=== PATIENT | female | born 1935 | race Caucasian/White ===

== ENCOUNTER 2016-11-22 12:34 | Outpatient (CLI) | payer MEDICARE, OTHER | END 2016-11-22 12:35 | disposition critical access hospital (66) | LOC: EMS 12:34 | PROVIDERS: ATTEND Surgery | DX: R07.9 Chest pain, unspecified (principal); R06.02 Shortness of breath; M54.5 Low back pain; K92.1 Melena | CPT/HCPCS: A0425; A0427 ==

== ENCOUNTER 2016-11-22 12:47 | Emergency (ER) | payer MEDICARE, OTHER ==
[2016-11-22 13:13] LABS: BASOPHILS # (AUTO) 0.1 10^3/uL (0.0-0.1); BASOPHILS % (AUTO) 0.8 %; EOSINOPHILS # (AUTO) 0.1 10^3/uL (0.0-0.7); EOSINOPHILS % (AUTO) 1.6 %; HCT - HEMATOCRIT 42.9 % (37.0-47.0); HGB - HEMOGLOBIN 14.7 g/dL (12.0-16.0); LYMPHOCYTES % (AUTO) 26.6 %; MEAN CORPUSCULAR HEMOGLOBIN 32.2 pg (27.0-31.0); MEAN CORPUSCULAR HGB CONC 34.3 g/dL (32.0-36.0); MEAN CORPUSCULAR VOLUME 94.1 fL (81.0-99.0); MEAN PLATELET VOLUME 8.2 fL (7.9-10.8); MONOCYTES # (AUTO) 0.5 10^3/uL (0.0-1.0); MONOCYTES % (AUTO) 6.8 %; NEUTROPHILS # (AUTO) 4.8 10^3/uL (1.5-6.6); NEUTROPHILS % (AUTO) 64.2 %; NUCLEATED RED BLOOD CELLS AUTO 0.1 /100WBC; RED BLOOD COUNT 4.56 10^6/uL (4.20-5.40); RED CELL DISTRIBUTION WIDTH 13.6 % (12.0-15.0); UNCORRECTED WHITE BLOOD COUNT 7.5 x10^3/uL; WHITE BLOOD COUNT 7.5 x10^3/uL (4.8-10.8)
[2016-11-22 13:29] LABS: ALBUMIN/GLOBULIN RATIO 1.3 (1.0-2.2); BILIRUBIN,TOTAL 1.5 mg/dL (0.2-1.0); CALCIUM 9.3 mg/dL (8.5-10.3); CREATININE 0.9 mg/dL (0.4-1.0); TOTAL PROTEIN 7.3 g/dL (6.7-8.2)
[2016-11-22 13:36] LABS: INR 1.1 (0.8-1.2); PT - PROTHROMBIN TIME 12.2 secs (9.9-12.6)
[2016-11-22] MEDS ORDERED: SODIUM CHLORIDE 0.9% 1,000 ML IV ONE (13:47)
[2016-11-22] MEDS ORDERED: THIAMINE 100 MG TABLET PO STA (13:48)
[2016-11-22] MEDS ORDERED: THIAMINE 100 MG TABLET PO ONE (13:58)
--- NOTE | 2016-11-22 14:06 | XRAY Preliminary Report ---
Exam: XR Chest 1 View IMPRESSION: Normal single view chest. [facility] SITE ID: [id number]
--- NOTE | 2016-11-22 14:13 | XRAY Report ---
EXAM: CHEST RADIOGRAPHY EXAM DATE: 11/22/2016 01:44 PM. CLINICAL HISTORY: Chest pain. COMPARISON: 08/17/2016. TECHNIQUE: 1 view. FINDINGS: Lungs/Pleura: No focal opacities evident. No pleural effusion. No pneumothorax. Mediastinum: Within exam limitations, cardiomediastinal contour is normal. Other: None. IMPRESSION: Normal single view chest. [facility] Referring Provider Line: [phone] SITE ID: [id number]
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
--- NOTE | 2016-11-22 14:38 | CT Preliminary Report ---
Exam: CT Head W/O IMPRESSION: Generalized age-related cortical atrophic changes without evidence of acute intracranial abnormality. [facility] SITE ID: [id number]
--- NOTE | 2016-11-22 14:46 | CT Report ---
EXAM: CT HEAD EXAM DATE: 11/22/2016 02:11 PM. CLINICAL HISTORY: Altered mental status (AMS). COMPARISON: 04/23/2007. Head MRI 04/28/2007. TECHNIQUE: Multiaxial CT images were obtained from the foramen magnum to the vertex. IV contrast: Non e. Reformats: Coronal. In accordance with CT protocol optimization, one or more of the following dose reduction techniques w ere utilized for this exam: automated exposure control, adjustment of mA and/or KV based on patient s ize, or use of iterative reconstructive technique. FINDINGS: Parenchyma: No intraparenchymal hemorrhage. No evidence of mass, midline shift, or CT findings of acu te infarction. Verde-white differentiation is distinct. Extraaxial Spaces: Normal for age. No subdural or epidural collections identified. Ventricles: The ventricles and cortical sulci are enlarged, consistent with age-related tissue loss. Sinuses: Imaged paranasal sinuses, orbits, and mastoids show no significant abnormality. Bones: No evidence of fracture or calvarial defect. Other: Diffuse chronic microangiopathic white matter changes are evident. IMPRESSION: Generalized age-related cortical atrophic changes without evidence of acute intracranial abnormality. [facility] Referring Provider Line: [phone] SITE ID: [id number]
--- NOTE | 2016-11-22 14:57 | CT Preliminary Report ---
Exam: CT Cervical Spine W/O IMPRESSION: 1. No evidence of cervical spine fracture or dislocation. 2. There is mild multilevel degenerative disease. [facility] SITE ID: [id number]
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
[2016-11-22] MEDS ORDERED: PANTOPRAZOLE 40 MG VIAL IVP STA (16:46)
[2016-11-22] MEDS ORDERED: POTASSIUM CHLORIDE 20 MEQ TABLET PO STA (16:46)
[2016-11-22] MEDS ORDERED: POTASSIUM CHLORIDE 20 MEQ TABLET PO ONE (17:25)
[2016-11-22] MEDS ORDERED: PANTOPRAZOLE 40 MG VIAL ONE (17:25)
[2016-11-22] MEDS ORDERED: SODIUM CHLORIDE FLUSH 0.9% 10 ML SYRINGE IVP ONE (17:26)
[2016-11-22] MEDS ORDERED: MAGNESIUM SULFATE 1 GM/2 ML VIAL IVP STA (17:38)
[2016-11-22] MEDS ORDERED: MAGNESIUM SULFATE 2 GRAM 50 ML IV STA (17:40)
[2016-11-22] MEDS ORDERED: MAGNESIUM SULFATE 2 GRAM 50 ML IV ONE (17:59)
[2016-11-22 20:44] VITALS: BP 158/81
== END 2016-11-22 19:05 | disposition home or self-care (01) ==
LOC: EDUNIT# → ED 12:47
DX: E83.42 Hypomagnesemia (principal); E87.6 Hypokalemia; I48.91 Unspecified atrial fibrillation; Z79.82 Long term (current) use of aspirin
CPT/HCPCS: 36415; 70450; 71010; 72125; 80053; 83690; 83880; 84484; 85025; 85610; 93005; 96374; 96375; 99284; A9270; G0480; 80320; 81001; 81003; 87086

== ENCOUNTER 2017-03-09 10:10 | Emergency (ER) | payer MEDICARE, OTHER ==
[2017-03-09 10:43] LABS: BUN - BLOOD UREA NITROGEN 15 mg/dL (6-20); CALCIUM 9.4 mg/dL (8.5-10.3); CARBON DIOXIDE - CO2 23 mmol/L (21-32); CHLORIDE 107 mmol/L (101-111); CREATININE 0.8 mg/dL (0.4-1.0); GFR - MDRD 69 (>89); GLUCOSE 100 mg/dL (70-100); MAGNESIUM 1.7 mg/dL (1.7-2.8); POTASSIUM 3.6 mmol/L (3.5-5.0); SODIUM 140 mmol/L (135-145)
[2017-03-09 10:46] LABS: BASOPHILS % (AUTO) 0.6 %; EOSINOPHILS # (AUTO) 0.1 10^3/uL (0.0-0.7); EOSINOPHILS % (AUTO) 2.5 %; HCT - HEMATOCRIT 41.3 % (37.0-47.0); HGB - HEMOGLOBIN 14.2 g/dL (12.0-16.0); LYMPHOCYTES # (AUTO) 2.1 10^3/uL (1.5-3.5); LYMPHOCYTES % (AUTO) 39.4 %; MEAN CORPUSCULAR HEMOGLOBIN 32.1 pg (27.0-31.0); MEAN CORPUSCULAR HGB CONC 34.5 g/dL (32.0-36.0); MEAN PLATELET VOLUME 7.6 fL (7.9-10.8); MONOCYTES # (AUTO) 0.5 10^3/uL (0.0-1.0); NEUTROPHILS # (AUTO) 2.7 10^3/uL (1.5-6.6); NEUTROPHILS % (AUTO) 48.5 %; NUCLEATED RED BLOOD CELLS AUTO 0.1 /100WBC; RED BLOOD COUNT 4.44 10^6/uL (4.20-5.40); RED CELL DISTRIBUTION WIDTH 13.1 % (12.0-15.0); UNCORRECTED WHITE BLOOD COUNT 5.5 x10^3/uL; WHITE BLOOD COUNT 5.5 x10^3/uL (4.8-10.8)
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
--- NOTE | 2017-03-09 11:53 | XRAY Preliminary Report ---
Exam: XR CHEST 1 VIEW IMPRESSION: Negative portable chest. [facility] SITE ID: [id number]
--- NOTE | 2017-03-09 11:56 | XRAY Report ---
EXAM: CHEST RADIOGRAPHY EXAM DATE: 03/09/2017 11:41 AM. CLINICAL HISTORY: AMS r/o dementia. COMPARISON: None. TECHNIQUE: 1 view. FINDINGS: Lungs/Pleura: No focal opacities evident. No pleural effusion. No pneumothorax. Mediastinum: Within exam limitations, the cardiomediastinal contour is normal. Other: None. IMPRESSION: Negative portable chest. [facility] Referring Provider Line: [phone] SITE ID: [id number]
--- NOTE | 2017-03-09 12:03 | CT Preliminary Report ---
Exam: CT HEAD W/O IMPRESSION: 1. Acute small volume subarachnoid hemorrhage at the left frontal convexity. No significant mass effe ct. [facility] The above findings were discussed with Dr. Paiz by Dr. Sohail Ba at 12:01 hrs on 03/09/17. SITE ID: [id number]
--- NOTE | 2017-03-09 12:05 | CT Report ---
EXAM: CT HEAD EXAM DATE: 03/09/2017 11:27 AM. CLINICAL HISTORY: AMS and diff speaking. COMPARISON: CT head 11/22/2016. TECHNIQUE: Multiaxial CT images were obtained from the foramen magnum to the vertex. Reformats: Coron al. IV contrast: None. In accordance with CT protocol optimization, one or more of the following dose reduction techniques w ere utilized for this exam: automated exposure control, adjustment of mA and/or KV based on patient s ize, or use of iterative reconstructive technique. FINDINGS: Parenchyma: No midline shift. Basal cisterns are patent. No significant mass effect. Verde-white diffe rentiation is intact. No intra-axial mass or fluid collection is identified. Mild chronic microvascul ar ischemic changes. Extraaxial Spaces: There is acute small volume subarachnoid hemorrhage scattered over the left slunk skin curer ior frontal convexity. No significant mass effect. Ventricles: Normal in size and position. No intraventricular hemorrhage. Sinuses and Orbits: Imaged paranasal sinuses, orbits, and mastoids show no significant abnormality. Bones: No evidence of fracture or calvarial defect. Other: None. IMPRESSION: 1. Acute small volume subarachnoid hemorrhage at the left frontal convexity. No significant mass effe ct. [facility] The above findings were discussed with Dr. Paiz by Dr. Sohail Ba at 12:01 hrs on 03/09/17. Referring Provider Line: [phone] SITE ID: [id number]
[2017-03-09 15:10] LABS: BILIRUBIN,URINE NEGATIVE (NEGATIVE)
[2017-03-09 15:22] LABS: UA w/ MICROSCOPIC CHARGE YES; UR CULTURE IF IND INDICATED; WBC,URINE 0-3 /HPF (0-5)
[2017-03-09] MEDS ORDERED: LABETALOL 20 MG/4 ML SYRINGE IVP STA (15:32)
[2017-03-09 15:37] VITALS: BP 158/74
[2017-03-09] MEDS ORDERED: LABETALOL 20 MG/4 ML SYRINGE IVP ONE (15:40)
== END 2017-03-09 15:54 | disposition short-term general hospital (02) ==
LOC: ED 10:10
DX: I60.9 Nontraumatic subarachnoid hemorrhage, unspecified (principal); R47.02 Dysphasia; I50.9 Heart failure, unspecified; I25.10 Atherosclerotic heart disease of native coronary artery without angina pectoris; I25.2 Old myocardial infarction
CPT/HCPCS: 36415; 70450; 71010; 80048; 81001; 82310; 83735; 84484; 85025; 87086; 93005; 96374; 99284; 99285; G0480; 80320; 81003

== ENCOUNTER 2017-05-15 14:05 | Outpatient (CLI) | payer MEDICARE, OTHER ==
--- NOTE | 2017-05-15 18:12 | MRI Report ---
EXAM: MRI BRAIN WITHOUT CONTRAST EXAM DATE: 05/15/2017 03:03 PM. CLINICAL HISTORY: SUBARACHNOID HEMORRHAGE, ANEURYSM, CVA. COMPARISON: MR brain 03/10/2017 TECHNIQUE: Multiplanar, multisequence T1-weighted and fluid-sensitive MR sequences of the brain were performed. Sequences optimized for routine evaluation. Other: None. IV Contrast: None. FINDINGS: Brain Volume: Moderate diffuse cerebral volume loss with ex vacuo dilatation of the ventricles and salas lci, appropriate for age. Parenchyma/Dura: No residual sulcal FLAIR hyperintensities to suggest acute subarachnoid hemorrhage. Stable chronic hemosiderin staining within the sulci of the left frontal lobe (for example series 801 image 19), representing sequela of remote subarachnoid hemorrhage. No mass, acute infarct or hemorrh age. Moderate scattered T2/FLAIR hyperintense periventricular, deep, and subcortical white matter les ions within cerebral hemispheres bilaterally. Ventricles/Cisterns: Moderate ex vacuo dilatation. No hydrocephalus. No abnormal extra-axial fluid co llection or hemorrhage. Orbits: Status post bilateral lens replacement surgery. [place]: The pituitary gland, cavernous sinuses, suprasellar cistern and optic chiasm are unrem arkable. IAC: Symmetric and unremarkable. Vasculature: Normal signal flow void is seen in the major arterial structures at the skull base. Sinuses: No acute appearing sinus disease. Bones: No focal pathologic appearing marrow signal changes. Other: None. IMPRESSION: 1. No acute subarachnoid hemorrhage. Stable chronic hemosiderin staining within the sulci of the left frontal lobe (for example series 801 image 19), representing sequela of remote subarachnoid hemorrha ge. 2. No MRI evidence of acute intracranial abnormality. Specifically, no evidence of acute or subacute infarct, acute intracranial hemorrhage, mass, midline shift, or hydrocephalus. 3. Moderate scattered T2/FLAIR hyperintense periventricular, subcortical, and deep white matter lesio ns within cerebral hemispheres bilaterally. While nonspecific, these are favored to represent sequela of chronic microangiopathy. [facility] Referring Provider Line: [phone] SITE ID: [id number]
--- NOTE | 2017-05-15 18:20 | MRI Report ---
EXAM MRA BRAIN EXAM DATE: 05/15/2017 02:41 PM. 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 COMPARISON: MRA brain 03/10/2017 TECHNIQUE: Multiplanar, multisequence MRA sequences of the brain were performed. Other: None. Post-pr ocessing: Multiplanar 3D MIP reconstructions. IV Contrast: None. FINDINGS: RIGHT moderate atherosclerosis right carotid siphon, maximal stenosis approximately 20%. No aneurysm, stenosis or anomaly. Middle Cerebral (MCA): No aneurysm, stenosis or anomaly. Anterior Cerebral (SILVER): Redemonstration 5 x 4 mm right pericallosal aneurysm (series 401 image 195). Otherwise unremarkable. Posterior Cerebral (FACILITY EXAMINER): No aneurysm, stenosis or anomaly. Posterior Communicating (P-COM): No aneurysm, stenosis or anomaly. Vertebral: The right vertebral artery is diminutive LEFT Internal Carotid (ICA): Moderate atherosclerosis left carotid siphon from maximal stenosis 30-40%. Middle Cerebral (MCA): No aneurysm, stenosis or anomaly. Anterior Cerebral (SILVER): No aneurysm, stenosis or anomaly. Posterior Cerebral (FACILITY EXAMINER): No aneurysm, stenosis or anomaly. Posterior Communicating (P-COM): No aneurysm, stenosis or anomaly. Vertebral: No hemodynamic significant stenosis. There is a 3.5 mm posteriorly oriented aneurysm assoc iated with the left PICA origin (series 401 image 53), this appears unchanged in size or appearance s cem the prior MR. MIDLINE Anterior Communicating (A-COM): No aneurysm, stenosis or anomaly. Basilar Artery:No aneurysm, stenosis or anomaly. Other: None. IMPRESSION: 1. 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 2. 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 3. Moderate atherosclerosis right carotid siphon, maximal stenosis approximately 20%. 4. Moderate atherosclerosis left carotid siphon, maximal stenosis through the 40%. [facility] Referring Provider Line: [phone] SITE ID: [id number]
== END 2017-05-15 14:06 | disposition home or self-care (01) ==
LOC: DI 14:05
PROVIDERS: ATTEND Family Medicine
DX: I72.6 Aneurysm of vertebral artery (principal); I67.1 Cerebral aneurysm, nonruptured; I65.23 Occlusion and stenosis of bilateral carotid arteries
CPT/HCPCS: 70544; 70551

== ENCOUNTER 2017-06-02 11:25 | Outpatient (CLI) | payer MEDICARE, OTHER ==
[2017-06-02 19:00] LABS: BASOPHILS % (AUTO) 0.6 %; EOSINOPHILS # (AUTO) 0.2 10^3/uL (0.0-0.7); EOSINOPHILS % (AUTO) 2.4 %; HGB - HEMOGLOBIN 14.1 g/dL (12.0-16.0); LYMPHOCYTES # (AUTO) 2.9 10^3/uL (1.5-3.5); LYMPHOCYTES % (AUTO) 45.3 %; MEAN CORPUSCULAR HEMOGLOBIN 30.4 pg (27.0-31.0); MEAN CORPUSCULAR HGB CONC 32.4 g/dL (32.0-36.0); MEAN CORPUSCULAR VOLUME 93.8 fL (81.0-99.0); MEAN PLATELET VOLUME 8.3 fL (7.9-10.8); MONOCYTES # (AUTO) 0.4 10^3/uL (0.0-1.0); MONOCYTES % (AUTO) 6.3 %; NEUTROPHILS # (AUTO) 2.9 10^3/uL (1.5-6.6); NEUTROPHILS % (AUTO) 45.4 %; PLT - PLATELET COUNT 164 10^3/uL (130-450); RED BLOOD COUNT 4.64 10^6/uL (4.20-5.40); WHITE BLOOD COUNT 6.3 x10^3/uL (4.8-10.8)
[2017-06-02 19:07] LABS: INR 1.1 (0.8-1.2); PT - PROTHROMBIN TIME 12.4 secs (9.9-12.6)
[2017-06-02 19:33] LABS: ALBUMIN/GLOBULIN RATIO 1.4 (1.0-2.2); BILIRUBIN,TOTAL 1.1 mg/dL (0.2-1.0); CALCIUM 9.2 mg/dL (8.5-10.3); CREATININE 0.8 mg/dL (0.4-1.0); TOTAL PROTEIN 6.9 g/dL (6.7-8.2)
== END 2017-06-02 11:26 | disposition home or self-care (01) ==
LOC: LAB.WCP 11:25
PROVIDERS: ATTEND Family Medicine
DX: K62.5 Hemorrhage of anus and rectum (principal); R63.4 Abnormal weight loss
CPT/HCPCS: 36415; 80053; 85025; 85610

== ENCOUNTER 2017-06-08 09:46 | Outpatient (CLI) | payer MEDICARE, OTHER ==
[2017-06-08] MEDS ORDERED: IOPAMIDOL-300 100 ML VIAL ONE (09:59)
[2017-06-08] MEDS ORDERED: IOPAMIDOL-300 50 ML VIAL ONE (09:59)
[2017-06-08] MEDS ORDERED: IOPAMIDOL-300 100 ML VIAL IVP ONE (11:17)
[2017-06-08] MEDS ORDERED: IOPAMIDOL-300 50 ML VIAL PO ONE (11:17)
--- NOTE | 2017-06-08 19:06 | CT Report ---
CT ABDOMEN AND PELVIS WITH CONTRAST: 06/08/2017 CLINICAL INDICATION: Weight loss, rectal bleeding. TECHNIQUE: Axial CT images of the abdomen and pelvis were obtained with 100 mL Isovue 300 intravenously as well as oral contrast. In accordance with CT protocol optimization, one or more of the following dose reduction techniques were utilized for this exam: Automated exposure control, adjustment of mA and/or KV based on patient size, or use of iterative reconstructive technique. FINDINGS: Limited evaluation of the lung bases demonstrates emphysema. ABDOMEN: The liver demonstrates decrease in attenuation, compatible with fatty infiltration. No focal parenchymal lesion is present. The spleen, pancreas and adrenal glands are unremarkable. The kidneys demonstrate cortical cysts. The gallbladder is not dilated. No bowel dilatation, free gas, or free fluid is present. No abdominal adenopathy is seen. PELVIS: Sigmoid diverticulosis is present, without CT evidence of diverticulitis. No free pelvic fluid or adenopathy is seen. Osseous structures demonstrate degenerative changes. IMPRESSION: SIGMOID DIVERTICULOSIS, WITHOUT CT EVIDENCE OF DIVERTICULITIS. TD: 06/08/2017 19:05
== END 2017-06-08 09:47 | disposition home or self-care (01) ==
LOC: DI 09:46
PROVIDERS: ATTEND Family Medicine
DX: K57.30 Diverticulosis of large intestine without perforation or abscess without bleeding (principal); R63.4 Abnormal weight loss; K62.5 Hemorrhage of anus and rectum; F10.10 Alcohol abuse, uncomplicated
CPT/HCPCS: 74177; Q9967

== ENCOUNTER 2017-06-19 10:30 | Day surgery (SDC) | payer MEDICARE, OTHER ==
[2017-06-19] MEDS ORDERED: LACTATED RINGERS 1,000 ML IV ONE (11:07)
[2017-06-19] MEDS ORDERED: fentaNYL 100 MCG/2 ML VIAL IVP ONE (12:44)
[2017-06-19] MEDS ORDERED: MIDAZOLAM 2 MG/2 ML VIAL IVP ONE (12:44)
[2017-06-19 14:21] VITALS: BP 129/51
== END 2017-06-19 10:31 | disposition home or self-care (01) ==
LOC: SDS 10:30
PROVIDERS: ATTEND Surgery
PROC: 0DJD8ZZ Inspection of Lower Intestinal Tract, Via Natural or Artificial Opening Endoscopic (ICD-10-PCS; principal; 2017-06-19 11:45)
DX: K62.5 Hemorrhage of anus and rectum (principal); K64.8 Other hemorrhoids; K57.30 Diverticulosis of large intestine without perforation or abscess without bleeding; R63.4 Abnormal weight loss; Z87.891 Personal history of nicotine dependence; E78.00 Pure hypercholesterolemia, unspecified; I11.0 Hypertensive heart disease with heart failure; I50.9 Heart failure, unspecified
CPT/HCPCS: 45378; J7120

== ENCOUNTER 2017-10-19 23:56 | Outpatient (CLI) | payer MEDICARE, OTHER ==
[2017-10-19 19:11] LABS: THYROID STIMULATING HORMONE 2.04 uIU/mL (0.34-5.60)
== END 2017-10-19 23:57 | disposition home or self-care (01) ==
LOC: LAB.WCP 23:56
PROVIDERS: ATTEND Psychiatry & Neurology Neurology
DX: R41.89 Other symptoms and signs involving cognitive functions and awareness (principal); F48.9 Nonpsychotic mental disorder, unspecified
CPT/HCPCS: 36415; 82607; 83921; 84443

== ENCOUNTER 2017-10-30 14:20 | Outpatient (CLI) | payer MEDICARE, OTHER ==
--- NOTE | 2017-10-31 10:12 | Ultrasound Report ---
Procedure Date: 10/30/2017 Accession Number: [id number] / [id number] Procedure: US - Carotid Doppler Complete CPT Code: FULL RESULT: EXAM: BILATERAL CAROTID AND VERTEBRAL ARTERY DUPLEX DOPPLER ULTRASOUND: EXAM DATE: 10/30/2017 05:08 PM CLINICAL HISTORY: RIGHT CAROTID STENOSIS. COMPARISON: None. TECHNIQUE: Grayscale imaging, color Doppler, and duplex spectral Doppler were used to evaluate the carotid and vertebral arteries bilaterally. Static images were obtained. FINDINGS: Multifocal extensive large amount calcified plaque seen in the right common, right external and right internal carotid arteries. Multifocal extensive moderate amount of calcified plaque is seen in the left common, left external and left internal carotid arteries. Normal antegrade flow is present in bilateral vertebral arteries. VELOCITIES: Right CCA mid: PSV 75 cm/sec CCA dist: PSV 103 cm/sec ICA prox: PSV 107 cm/sec, EDV 20 cm/sec ICA mid: PSV 99 cm/sec, EDV 13 cm/sec ICA dist: PSV 69 cm/sec, EDV 13 cm/sec ECA: PSV 363 cm/sec Vert: PSV 19 cm/sec ICA/CCA: 1.03 Left CCA mid: PSV 68 cm/sec CCA dist: PSV 49 cm/sec ICA prox: PSV 51 cm/sec, EDV 10 cm/sec ICA mid: PSV 61 cm/sec, EDV 15 cm/sec ICA dist: PSV 103 cm/sec, EDV 21 cm/sec ECA: PSV 80 cm/sec Vert: PSV 69 cm/sec ICA/CCA: 1.5 ICA diameter stenosis: Right: <50% by velocity and <70% by NASCET criteria. Left: <50% by velocity and <70% by NASCET criteria. IMPRESSION: 1. Extensive bilateral carotid artery plaquing. 2. In the right carotid artery there are no elevated carotid artery velocities to suggest hemodynamically significant stenosis. 3. In the left carotid artery there are no elevated carotid artery velocities to suggest hemodynamically significant stenosis. 4. Normal antegrade flow is present in bilateral vertebral arteries. General Recommendations: Stenosis =50% ICA - Follow-up ultrasound 6-12 months Stenosis <50% ICA - High Risk Patient with plaque - Follow-up ultrasound 1-2 years Normal Study but High Risk Patient - Follow-up ultrasound 3-5 years Management recommendations and diagnostic criteria are based on current IAC endorsed standards in Carotid Artery Stenosis: Grayscale and Doppler Ultrasound Diagnosis. Validated velocity measurements with angiographic measurements and velocity criteria are extrapolated from diameter data as defined by the Society of Radiologists in Ultrasound Consensus Conference Radiology 2003; 229;340-346. [facility]
== END 2017-10-30 14:21 | disposition home or self-care (01) ==
LOC: DI 14:20
PROVIDERS: ATTEND Psychiatry & Neurology Neurology
DX: I65.21 Occlusion and stenosis of right carotid artery (principal)
CPT/HCPCS: 93880

== ENCOUNTER 2018-01-27 15:45 | Emergency (ER) | payer MEDICARE, OTHER ==
--- NOTE | 2018-01-27 16:48 | XRAY Report ---
Reason: Trauma Procedure Date: 01/27/2018 Accession Number: [id number] / [id number] Procedure: XR - Wrist 4 View RT CPT Code: FULL RESULT: EXAM: RIGHT WRIST RADIOGRAPHY EXAM DATE: 01/27/2018 04:23 PM. CLINICAL HISTORY: Trauma. Right wrist pain after fall on outstretched hand today. COMPARISON: None. TECHNIQUE: 4 views. FINDINGS: Bones: Osteopenic. No fracture is seen. Joints: Normal alignment. Moderate joint space loss and mild subchondral degenerative changes at the triscaphe joint. Soft Tissues: No evident focal soft tissue swelling. Chondrocalcinosis in the regular fiber cartilage. IMPRESSION: 1. Osteopenia. No evident acute bony abnormality. 2. 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 [facility]
--- NOTE | 2018-01-27 17:43 | ED Physician Documentation ---
PD HPI Fall - Stated complaint Stated Complaint: GLF - FELL ON FACE - Chief complaint Chief Complaint: Laceration - History obtained from History obtained from: Patient, Family - History of Present Illness Mechanism of injury: Tripped Fall distance: Standing position Where injury occurred: Other (curb) Timing - onset: How many hours ago (2) Injury(ies) location: Head, Face, Right Upper Extremity (wrist) Pain level max: 4 Pain level now: 3 Quality of pain: Pain Associated symptoms: AMS (dementia). No: LOC, Seizures, Neck pain, Weakness, Paresthesias, Nausea / vomiting Symptoms improve with: Rest Worsens with: Movement, Palpation Contributing factors: No: Anticoagulated, Intoxicated Recently seen: Not recently seen Review of Systems Unable to obtain: Dementia Constitutional: denies: Fever Cardiac: denies: Chest pain / pressure Respiratory: denies: Cough GI: denies: Vomiting, Diarrhea Skin: denies: Rash Musculoskeletal: denies: Neck pain, Back pain Neurologic: denies: Focal weakness, Numbness PD PAST MEDICAL HISTORY - Past Medical History Cardiovascular: Congestive heart failure, Coronary artery disease, [place], Other Psych: Depression - Past Surgical History Past Surgical History: Yes General: 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, Hysterectomy Cardiovascular: Coronary stent HEENT: Tonsil/Adenoidectomy - Present Medications Home Medications: Ambulatory Orders Medication Instructions Recorded Confirmed FLUoxetine [PROzac] 01/27/18 Lisinopril 01/27/18 levETIRAcetam [Levetiracetam] 01/27/18 - Allergies Allergies/Adverse Reactions: Allergies Allergy/AdvReac Type Severity Reaction Status Date / Time No Known Drug Allergies Allergy Verified 11/22/16 12:54 - Social History Does the pt smoke?: No Smoking Status: Never smoker Does the pt drink ETOH?: No Does the pt have substance abuse?: No - Immunizations Immunizations are current?: Yes - POLST Patient has POLST: No PD ED PE NORMAL - Vitals Vital signs reviewed: Yes - General General: No acute distress, Well developed/nourished, Other (Alert and oriented to person and place) - HEENT HEENT: PERRL, EOMI, Moist mucous membranes, Other (Small superficial abrasion to the right supraorbital ridge. Blood down her face. No facial tenderness to palpation. No bony tenderness. No scalp hematomas) - Neck Neck: Supple, no meningeal sign, No bony TTP (No step-off or deformity) - Cardiac Cardiac: RRR, Strong equal pulses - Respiratory Respiratory: No respiratory distress, Clear bilaterally - Abdomen Abdomen: Soft, Non tender, Non distended - Derm Derm: Warm and dry - Extremities Extremities: Other (Tender to palpation over the ulnar aspect of the right wrist. Neurovascularly intact. No snuffbox tenderness) - Neuro Neuro: billboard poster 2-12 intact, No motor deficit, No sensory deficit, Normal speech Eye Opening: Spontaneous Motor: Obeys Commands Verbal: Confused GCS Score: 14 - Psych Psych: Normal affect Results - Vitals Vitals: Vital Signs - 24 hr 01/27/18 01/27/18 16:05 18:56 Temperature 36.4 C L Heart Rate 58 L 58 L Respiratory 15 16 Rate Blood Pressure 153/69 H 150/70 H O2 Saturation 95 96 Oxygen O2 Source Room air - Rads (name of study) Right wrist x-ray Radiology: Prelim report reviewed, EMP read contemporaneously, See rad report (No acute abnormality) Head CT Radiology: Prelim report reviewed, EMP read contemporaneously, See rad report ( No acute intracranial abnormality) PD MEDICAL DECISION MAKING - ED course Complexity details: reviewed results, re-evaluated patient, considered differential, d/w patient, d/w family ED course: 82-year-old female status post a ground-level fall today. Appears to have a right wrist contusion/sprain. Placed in a Velcro splint for comfort. Negative x-ray. Also did strike her head and does have dementia and is slightly altered, therefore head CT was obtained. This is negative. Wounds were cleansed and bandaged. Nothing is suturable at this time. Ambulating well. Patient and family counseled regarding signs and symptoms for which I believe and urgent re- evaluation would be necessary. Patient with good understanding of and agreement to plan and is comfortable going home at this time This document was made in part using voice recognition software. While efforts are made to proofread this document, sound alike and grammatical errors may occur. Departure - Departure Disposition: 01 Home, Self Care Clinical Impression: Abrasion Fall Qualifiers: Encounter type: initial encounter Qualified Code(s): W19.XXXA - Unspecified fall, initial encounter Right wrist sprain Qualifiers: Encounter type: initial encounter Qualified Code(s): S63.501A - Unspecified sprain of right wrist, initial encounter Head injury Qualifiers: Encounter type: initial encounter Qualified Code(s): S09.90XA - Unspecified injury of head, initial encounter Condition: Good Instructions: ED Head Injury Closed, ED Sprain Wrist Follow-Up: Bubba Amato DO [Primary Care Provider] - Within 1 week Comments: Wear the splint until released by your doctor. Your x-rays and head CT are normal tonight. Return if you worsen Discharge Date/Time: 01/27/18 18:56
--- NOTE | 2018-01-27 18:45 | CT Report ---
Reason: fall, head injury Procedure Date: 01/27/2018 Accession Number: [id number] / [id number] Procedure: CT - Head W/O CPT Code: FULL RESULT: EXAM: CT HEAD EXAM DATE: 01/27/2018 06:10 PM. CLINICAL HISTORY: Fall, head injury. COMPARISON: HEAD W/O 03/09/2017 11:26 AM. TECHNIQUE: Multiaxial CT images were obtained from the foramen magnum to the vertex. Reformats: Sagittal and coronal. IV contrast: None. In accordance with CT protocol optimization, one or more of the following dose reduction techniques were utilized for this exam: automated exposure control, adjustment of mA and/or KV based on patient size, or use of iterative reconstructive technique. FINDINGS: Parenchyma: No intraparenchymal hemorrhage. No evidence of mass, midline shift, or CT findings of infarction. Verde-white differentiation is distinct. Extraaxial Spaces: Normal for age. No subdural or epidural collections identified. Ventricles: Normal in size and position. Sinuses and Orbits: Imaged paranasal sinuses, orbits, and mastoids show no significant abnormality. Bones: No evidence of fracture or calvarial defect. Other: None. IMPRESSION: Negative for an acute or focal intracranial abnormality. [facility]
[2018-01-27 18:57] VITALS: BP 150/70
== END 2018-01-27 18:56 | disposition home or self-care (01) ==
LOC: ED 15:45
DX: S00.211A Abrasion of right eyelid and periocular area, initial encounter (principal); S63.501A Unspecified sprain of right wrist, initial encounter; W18.09XA Striking against other object with subsequent fall, initial encounter; Y92.480 Sidewalk as the place of occurrence of the external cause; F03.90 Unspecified dementia, unspecified severity, without behavioral disturbance, psychotic disturbance, mood disturbance, and anxiety; Z95.5 Presence of coronary angioplasty implant and graft
CPT/HCPCS: 70450; 99283

== ENCOUNTER 2018-02-22 09:51 | Outpatient (CLI) | payer MEDICARE, OTHER ==
--- NOTE | 2018-02-23 09:16 | DEXA Report ---
Reason: BONE DISORDER Procedure Date: 02/22/2018 Accession Number: [id number] / [id number] Procedure: DEX - Dexa Spine and/or Hip CPT Code: FULL RESULT: EXAM: Dexa Spine and/or Hip DATE: 02/22/2018 10:18 AM CLINICAL HISTORY: BONE DISORDER TECHNIQUE: Dual energy x-ray absorptiometry (DXA) was performed on a [employer] System. Regions measured are the AP Spine, femoral neck, and if needed forearm. COMPARISON: None. In accordance with the International Society for Clinical Densitometry (ISCD) guidelines, data from previous exams may be reanalyzed using current recommendations and techniques. This is done to allow a more accurate basis for comparison with the current study. FINDINGS: The data for the lumbar spine is as follows: BMD (g/cm/cm) T-SCORE Z-SCORE REGION L1 0.886 -2.0 0.0 L2 0.922 -2.3 -0.2 L3 1.063 -1.1 0.9 L4 1.037 -1.4 0.7 TOTAL 0.981 -1.7 0.4 NOTE: All evaluable vertebrae are used for classification The data for the hip is as follows: BMD (g/cm/cm) T-SCORE Z-SCORE REGION Neck 0.781 -1.8 0.5 TOTAL 0.750 -2.0 0.2 NOTE: The femoral neck or total proximal femur, whichever is lowest, is used for classification. IMPRESSION: THE WHO CLASSIFICATION BASED ON THE INTERNATIONAL REFERENCE STANDARD IS OSTEOPENIA. THE FRACTURE RISK IS INCREASED. RECOMMENDATION: Patients with diagnosis of osteoporosis or osteopenia should have regular bone mineral density assessment. For those eligible for Medicare, routine testing is allowed once every 2 years. Testing frequency can be increased for patients who have rapidly progressing disease or for those who are receiving medical therapy to restore bone mass. COMMENT: World Health Organization (WHO) definitions for osteoporosis and osteopenia: NORMAL BMD: T-score at -1.0 or higher, fracture risk is low OSTEOPENIA BMD: T-score between -1.0 and -2.5, fracture risk is increased. OSTEOPOROSIS BMD: T-score at -2.5 or lower, fracture risk is high. National Osteoporosis Foundation recommends: 1. Obtain adequate dietary calcium (at least 1200 mg per day) and vitamin D (400-800 international units per day). 2. Participate, as appropriate, in regular weightbearing and muscle-strengthening exercise. 3. Avoid tobacco use and reduce alcohol and caffeine intake. 4. For more detailed information see the website at www.NOF.org.
== END 2018-02-22 09:52 | disposition home or self-care (01) ==
LOC: DI 09:51
PROVIDERS: ATTEND Family Medicine
DX: M85.89 Other specified disorders of bone density and structure, multiple sites (principal)
CPT/HCPCS: 77080

== ENCOUNTER 2018-07-31 11:58 | Outpatient (CLI) | payer MEDICARE, OTHER ==
--- NOTE | 2018-07-31 15:51 | XRAY Report ---
Reason: HIP PAIN,LEFT Procedure Date: 07/31/2018 Accession Number: [id number] / [id number] Procedure: WCP - Hip w/Pelvis 2-3V LT CPT Code: FULL RESULT: EXAM: LEFT HIP RADIOGRAPHY EXAM DATE: 07/31/2018 12:06 PM. CLINICAL HISTORY: Hip pain, left. COMPARISON: None. TECHNIQUE: 2 views. FINDINGS: Bones: Normal. No fractures or bone lesion. Joints: Normal. No dislocation. The hip joint space is preserved. Soft Tissues: Normal. No soft tissue swelling. IMPRESSION: Normal hip radiography. [facility]
== END 2018-07-31 11:59 | disposition home or self-care (01) ==
LOC: DI.WCP 11:58
PROVIDERS: ATTEND Family Medicine
DX: M25.552 Pain in left hip (principal)

== ENCOUNTER 2018-10-17 09:11 | Outpatient (CLI) | payer MEDICARE, OTHER ==
--- NOTE | 2018-10-17 13:47 | MRI Report ---
Reason: MAJOR NEUROCOGNITIVE DISORDER,CEREBRAL ANEURYSM Procedure Date: 10/17/2018 Accession Number: [id number] / [id number] Procedure: MRI - Brain W/O CPT Code: FULL RESULT: EXAMS: MRI BRAIN WITHOUT CONTRAST. MRA BRAIN WITHOUT CONTRAST. EXAM DATE: 10/17/2018 10:07 AM. CLINICAL HISTORY: 83-year-old with known aneurysm presenting with worsening memory loss and confusion. Evaluate intracranial pathology or vascular pathology. COMPARISON: MR brain 05/15/2017; MRA head 05/15/2017. TECHNIQUE: MRI: Multiplanar, multisequence T1-weighted and fluid-sensitive MRI sequences of the brain were performed. Sequences optimized for routine evaluation. Other: None. Post-processing: None. IV Contrast: None. MRA: Multiplanar, multisequence T1-weighted and fluid-sensitive MRA sequences of the brain were performed. Other: None. Post-processing: Multiplanar 3D MIP reconstructions. IV Contrast: None. FINDINGS: MRI: Brain Volume: Mild to moderate cortical volume loss Parenchyma/Dura: No acute parenchymal hemorrhage, mass, or midline shift. There is mild to moderate bilateral areas of T2/FLAIR signal hyperintensity seen similar to MR brain 05/15/2017. There is an area of DWI signal hyperintensity involving the posterior right cerebellum measuring up to 3 mm (series 305, image 40) with no definite ADC signal hypointensity and appears similar to MR brain 05/15/2017. Finding may be artifactual. No definite areas of restricted diffusion seen to suggest acute infarct. 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 Ventricles/Cisterns: No hydrocephalus. Sulci and cisterns appear prominent, but appropriate for the extent of volume loss. Except as described above, no abnormal extra-axial fluid collection/mass seen. Orbits: Changes of bilateral lens replacement. Sella Turcica: The pituitary gland, cavernous sinuses, suprasellar cistern and optic chiasm are unremarkable. IAC: Symmetric and unremarkable. Vasculature: Normal signal flow void is seen in the major arterial structures at the skull base. Sinuses: No acute appearing sinus disease. Bones: No focal pathologic appearing marrow signal changes. Other: None. MRA: RIGHT Internal Carotid (ICA): Atherosclerotic plaque involving the right cervical ICA with less than 20% stenosis. No aneurysm of the intracranial ICA. Middle Cerebral (MCA): No aneurysm, stenosis or anomaly. 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 Posterior Cerebral (MARKETING ACCOUNT EXECUTIVE): No aneurysm, stenosis or anomaly. Posterior Communicating (P-COM): No aneurysm, stenosis or anomaly. Vertebral: The right vertebral artery is diminutive in caliber similar prior study. No aneurysm. LEFT Internal Carotid (ICA): Atherosclerotic plaque involving the cavernous ICA segment with less than 20% stenosis similar to prior study. There is a medially projecting outpouching arising from the cavernous left ICA segment measuring 4.3 x 4.4 mm (series 401, image 111 similar to prior study suggesting potential aneurysm. Middle Cerebral (MCA): No aneurysm, stenosis or anomaly. Anterior Cerebral (SIVLER): No aneurysm, stenosis or anomaly. Posterior Cerebral (MARKETING ACCOUNT EXECUTIVE): No aneurysm, stenosis or anomaly. Posterior Communicating (P-COM): No aneurysm, stenosis or anomaly. Vertebral: No significant vertebral artery stenosis seen. Again demonstrated is an posteriorly projecting outpouching arising from the origin of the left PICA origin measuring 3.0 x 3.4 mm (series 401, image 45) stable. MIDLINE Anterior Communicating (A-COM): No aneurysm, stenosis or anomaly. Basilar artery: No aneurysm, stenosis or anomaly. Other: None. IMPRESSION: MRI HEAD: 1.No definite acute intracranial pathology seen; specifically, no acute infarct, acute intracranial hemorrhage, mass, hydrocephalus, or midline shift. 2. Mild to moderate white matter changes seen that appear similar to my brain 05/15/2017 and, while nonspecific, likely represent sequela of chronic small vessel ischemic disease. 3. 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 2. 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 3. Again demonstrated is irregularity of the cavernous left ICA segment with what appears to be a medially projecting outpouching that appears stable from MRA head 05/15/2017 and may represent aneurysm. [facility]
--- NOTE | 2018-10-17 13:47 | MRI Report ---
Reason: MAJOR NEUROCOGNITIVE DISORDER,CEREBRAL ANEURYSM Procedure Date: 10/17/2018 Accession Number: [id number] / [id number] Procedure: MRI - Angio Brain W/O (MRA) CPT Code: FULL RESULT: EXAMS: MRI BRAIN WITHOUT CONTRAST. MRA BRAIN WITHOUT CONTRAST. EXAM DATE: 10/17/2018 10:07 AM. CLINICAL HISTORY: 83-year-old with known aneurysm presenting with worsening memory loss and confusion. Evaluate intracranial pathology or vascular pathology. COMPARISON: MR brain 05/15/2017; MRA head 05/15/2017. TECHNIQUE: MRI: Multiplanar, multisequence T1-weighted and fluid-sensitive MRI sequences of the brain were performed. Sequences optimized for routine evaluation. Other: None. Post-processing: None. IV Contrast: None. MRA: Multiplanar, multisequence T1-weighted and fluid-sensitive MRA sequences of the brain were performed. Other: None. Post-processing: Multiplanar 3D MIP reconstructions. IV Contrast: None. FINDINGS: MRI: Brain Volume: Mild to moderate cortical volume loss Parenchyma/Dura: No acute parenchymal hemorrhage, mass, or midline shift. There is mild to moderate bilateral areas of T2/FLAIR signal hyperintensity seen similar to MR brain 05/15/2017. There is an area of DWI signal hyperintensity involving the posterior right cerebellum measuring up to 3 mm (series 305, image 40) with no definite ADC signal hypointensity and appears similar to MR brain 05/15/2017. Finding may be artifactual. No definite areas of restricted diffusion seen to suggest acute infarct. 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 Ventricles/Cisterns: No hydrocephalus. Sulci and cisterns appear prominent, but appropriate for the extent of volume loss. Except as described above, no abnormal extra-axial fluid collection/mass seen. Orbits: Changes of bilateral lens replacement. Sella Turcica: The pituitary gland, cavernous sinuses, suprasellar cistern and optic chiasm are unremarkable. IAC: Symmetric and unremarkable. Vasculature: Normal signal flow void is seen in the major arterial structures at the skull base. Sinuses: No acute appearing sinus disease. Bones: No focal pathologic appearing marrow signal changes. Other: None. MRA: RIGHT Internal Carotid (ICA): Atherosclerotic plaque involving the right cervical ICA with less than 20% stenosis. No aneurysm of the intracranial ICA. Middle Cerebral (MCA): No aneurysm, stenosis or anomaly. 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 Posterior Cerebral (MORPHOLOGIST): No aneurysm, stenosis or anomaly. Posterior Communicating (P-COM): No aneurysm, stenosis or anomaly. Vertebral: The right vertebral artery is diminutive in caliber similar prior study. No aneurysm. LEFT Internal Carotid (ICA): Atherosclerotic plaque involving the cavernous ICA segment with less than 20% stenosis similar to prior study. There is a medially projecting outpouching arising from the cavernous left ICA segment measuring 4.3 x 4.4 mm (series 401, image 111 similar to prior study suggesting potential aneurysm. Middle Cerebral (MCA): No aneurysm, stenosis or anomaly. Anterior Cerebral (SILVER): No aneurysm, stenosis or anomaly. Posterior Cerebral (MORPHOLOGIST): No aneurysm, stenosis or anomaly. Posterior Communicating (P-COM): No aneurysm, stenosis or anomaly. Vertebral: No significant vertebral artery stenosis seen. Again demonstrated is an posteriorly projecting outpouching arising from the origin of the left PICA origin measuring 3.0 x 3.4 mm (series 401, image 45) stable. MIDLINE Anterior Communicating (A-COM): No aneurysm, stenosis or anomaly. Basilar artery: No aneurysm, stenosis or anomaly. Other: None. IMPRESSION: MRI HEAD: 1.No definite acute intracranial pathology seen; specifically, no acute infarct, acute intracranial hemorrhage, mass, hydrocephalus, or midline shift. 2. Mild to moderate white matter changes seen that appear similar to my brain 05/15/2017 and, while nonspecific, likely represent sequela of chronic small vessel ischemic disease. 3. 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 2. 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 3. Again demonstrated is irregularity of the cavernous left ICA segment with what appears to be a medially projecting outpouching that appears stable from MRA head 05/15/2017 and may represent aneurysm. RADIA
== END 2018-10-17 09:12 | disposition home or self-care (01) ==
LOC: DI 09:11
PROVIDERS: ATTEND Psychiatry & Neurology Neurology
DX: I67.1 Cerebral aneurysm, nonruptured (principal); I72.6 Aneurysm of vertebral artery; I77.89 Other specified disorders of arteries and arterioles
CPT/HCPCS: 70544; 70551

== ENCOUNTER 2019-02-04 08:00 | Outpatient (CLI) | payer MEDICARE, OTHER | END 2019-02-04 23:59 | disposition home or self-care (01) | LOC: LAB.WCP 08:00 | PROVIDERS: ATTEND Family Medicine | DX: M25.50 Pain in unspecified joint (principal) | CPT/HCPCS: 36415; 85651; 86140 ==

== ENCOUNTER 2019-02-04 08:03 | Outpatient (CLI) | payer MEDICARE, OTHER ==
--- NOTE | 2019-02-04 09:06 | XRAY Report ---
Reason: NECK PAIN Procedure Date: 02/04/2019 Accession Number: [id number] / [id number] Procedure: WCP - Cervical Spine 2 View CPT Code: Final Report FULL RESULT: EXAM: CERVICAL SPINE RADIOGRAPHY EXAM DATE: 02/04/2019 08:17 AM. CLINICAL HISTORY: Neck pain. COMPARISONS: CERVICAL SPINE COMPLETE 04/18/2013 4:11 PM. TECHNIQUE: 3 views. FINDINGS: Alignment: No jose a scoliosis. Mild retrolisthesis at C5-C6 is slightly increased. Bones: The cervical vertebral bodies and posterior elements are well visualized from the skull base through C7-T1. No fractures or bone lesions. Disks: Severe C5-C6 disk space narrowing appears slightly progressed. Mild to moderate C3-C4 and mild C4-C5 disk space narrowing are mildly progressed. There is mild anterior C5-C6 vertebral body spurring redemonstrated. Facets: There is at least mild bilateral multilevel degenerative facet disease, similar to mildly progressed. Soft Tissues: Carotid calcifications demonstrated. No prevertebral soft tissue swelling. The visualized lung apices are clear. IMPRESSION: 1. No definite acute abnormality. 2. Degenerative disk disease, greatest at C5-C6, mildly progressed compared with 2013. 3. Multilevel bilateral degenerative facet disease, similar to mildly progressed. 3. Mild retrolisthesis at C5-C6, slightly progressed. RADIA
== END 2019-02-04 23:59 | disposition home or self-care (01) ==
LOC: DI.WCP 08:03
PROVIDERS: ATTEND Family Medicine
DX: M50.31 Other cervical disc degeneration, high cervical region (principal); M47.812 Spondylosis without myelopathy or radiculopathy, cervical region; M43.12 Spondylolisthesis, cervical region; M25.50 Pain in unspecified joint
CPT/HCPCS: 36415; 72040; 85651; 86140

== ENCOUNTER 2019-07-11 10:18 | Outpatient (CLI) | payer MEDICARE, OTHER ==
[2019-07-11 13:01] LABS: HGB - HEMOGLOBIN 13.5 g/dL (12.0-16.0); MEAN CORPUSCULAR HEMOGLOBIN 32.6 pg (27.0-31.0); MEAN CORPUSCULAR HGB CONC 31.5 g/dL (32.0-36.0); MEAN CORPUSCULAR VOLUME 103.4 fL (81.0-99.0); MEAN PLATELET VOLUME 9.5 fL (7.9-10.8); RED BLOOD COUNT 4.14 10^6/uL (4.20-5.40); RED CELL DISTRIBUTION WIDTH 13.9 % (12.0-15.0); WHITE BLOOD COUNT 6.5 x10^3/uL (4.8-10.8)
[2019-07-11 13:45] LABS: BUN - BLOOD UREA NITROGEN 15 mg/dL (6-20); CARBON DIOXIDE - CO2 27 mmol/L (21-32); CHLORIDE 105 mmol/L (101-111); CHOL/HDL RATIO 4.8 (<4.4); CHOLESTEROL 179 mg/dL; CREATININE 0.9 mg/dL (0.4-1.0); GLUCOSE 94 mg/dL (70-100); HDL CHOLESTEROL 37 mg/dL; LDL CHOLESTEROL,CALCULATED 122 mg/dL; LDL/HDL RATIO 3.3 (<4.4); SODIUM 140 mmol/L (135-145); VLDL CHOLESTEROL 20 mg/dL
--- NOTE | 2019-07-11 14:52 | XRAY Report ---
Reason: DYSPNEA ON EXERTION Procedure Date: 07/11/2019 Accession Number: [id number] / [id number] Procedure: WCP - Chest 2 View X-Ray CPT Code: 98416 Final Report FULL RESULT: EXAM: CHEST RADIOGRAPHY EXAM DATE: 07/11/2019 10:18 AM. CLINICAL HISTORY: DYspnea on exertion. COMPARISON: CHEST 1 VIEW 03/09/2017 11:34 AM. TECHNIQUE: 2 views. FINDINGS: Lungs/Pleura: Hyperinflation with flattening of the diaphragm. No lung consolidations or pleural fluid collection. No pneumothorax. Mediastinum: Heart size stable and upper limits of normal. Other: None. IMPRESSION: Hyperinflation without acute consolidation. RADIA
== END 2019-07-11 23:59 | disposition home or self-care (01) ==
LOC: DI.WCP 10:18
PROVIDERS: ATTEND Family Medicine
DX: R06.09 Other forms of dyspnea (principal); I25.10 Atherosclerotic heart disease of native coronary artery without angina pectoris; I10 Essential (primary) hypertension
CPT/HCPCS: 36415; 71046; 80048; 80061; 83721; 83880; 85027

== ENCOUNTER 2019-07-29 12:31 | Emergency (ER) | payer MEDICARE, OTHER ==
--- NOTE | 2019-07-29 13:48 | ED Physician Documentation ---
History of Present Illness - Stated complaint Stated Complaint: ARMS TINGLING - Chief complaint Chief Complaint: General - History obtained from History obtained from: Patient, Family (daughter) - Additonal information Additional information: This is a very pleasant 83-year-old woman with modest dementia who presents with her daughter for bilateral upper extremity tingling and numbness as well as some arm pain. It has been going on for months but generally worsening. It is associated with some exertional dyspnea. Also some neck pain especially when she turns her neck to the left. She started a statin recently, but we think the symptoms preceded that. No chest pain. No pedal edema. 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 Cardiovascular: Coronary stent HEENT: Tonsil/Adenoidectomy - Present Medications Home Medications: Ambulatory Orders Medication Instructions Recorded Confirmed FLUoxetine [PROzac] 01/27/18 levETIRAcetam [Levetiracetam] 01/27/18 lisinopriL [Lisinopril] 01/27/18 Albuterol Sulf [Ventolin Hfa 1 - 2 puffs INH Q4HR PRN #1 inhaler 07/29/19 Inhaler] Doxycycline Hyclate 100 mg PO BID #14 capsule 07/29/19 predniSONE [Deltasone] 20 mg PO [id number] #21 tab 07/29/19 - Allergies Allergies/Adverse Reactions: Allergies Allergy/AdvReac Type Severity Reaction Status Date / Time No Known Drug Allergies Allergy Verified 07/29/19 12:42 - Social History Does the pt smoke?: No Smoking Status: Never smoker Does the pt drink ETOH?: No Does the pt have substance abuse?: No - Immunizations Immunizations are current?: Yes - POLST Patient has POLST: No PD ED PE NORMAL - Vitals Vital signs reviewed: Yes - General General: No acute distress, Well developed/nourished - HEENT HEENT: PERRL, EOMI - Neck Neck: Supple, no meningeal sign, No bony TTP - Cardiac Cardiac: RRR, No murmur - Respiratory Respiratory: No respiratory distress, Clear bilaterally - Abdomen Abdomen: Normal bowel sounds, Soft, Non tender - Back Back: No CVA TTP, No spinal TTP - Derm Derm: Normal color, Warm and dry - Extremities Extremities: No edema, No calf tenderness / cord - Neuro Neuro: No motor deficit, No sensory deficit, Normal speech, Other (Diminished reflexes throughout the upper extremities, mild bilateral bicipital tenderness without limited range of motion. Strength in clinical secretary, thumb extension, interosseous, and flexion extension of the wrist seem normal and symmetric.) Results - Vitals Vitals: Vital Signs - 24 hr 07/29/19 12:42 Temperature 36.9 C Heart Rate 50 L Respiratory 17 Rate Blood Pressure 154/73 H O2 Saturation 95 Oxygen O2 Source Room air - EKG (time done) 1351 Rate: Rate (enter#) (51) Rhythm: NSR [place]: RAD Intervals: Normal [place] Ischemia: Non specific changes. No: ST elevation c/w ischemia Computer interpretation: Agree with computer - Labs Labs: Laboratory Tests 07/29/19 07/29/19 07/29/19 13:50 13:50 13:50 WBC 5.8 RBC 3.81 L Hgb 12.6 Hct 40.0 MCV 105.0 H MCH 33.1 H MCHC 31.5 L RDW 13.6 Plt Count 110 L MPV 9.3 Neut # (Auto) 2.5 Lymph # (Auto) 2.8 [place] # (Auto) 0.5 Eos # (Auto) 0.1 Baso # (Auto) 0.0 Absolute Nucleated RBC 0.00 Nucleated RBC % 0.0 Sodium 139 Potassium 4.0 Chloride 108 Carbon Dioxide 26 Anion Gap 5.0 L BUN 16 Creatinine 0.9 Estimated GFR (MDRD) 60 L Glucose 95 Calcium 8.6 Total Bilirubin 1.3 H AST 14 ALT 12 Alkaline Phosphatase 57 Total Creatine Kinase 29 Troponin I High Sens 6.8 Total Protein 6.3 L Albumin 3.6 Globulin 2.7 Albumin/Globulin Ratio 1.3 Lipase 54 H - Rads (name of study) 2v chest Radiology: EMP read contemporaneously (COPD with bronchitis, interstitial prominence) CT of the cervical spine Radiology: EMP read contemporaneously (Multilevel degenerative changes with bilateral neuroforaminal narrowing at C5-C6) PD MEDICAL DECISION MAKING - ED course ED course: She presents with shortness of breath which after work-up I think is due to COPD. There is no evidence of an acute coronary issue on work-up here. The arm numbness I thought was likely due to spinal stenosis but after CT is likely due to bilateral neuroforaminal narrowing at C5-C6. She is treated with a steroid taper as well as an albuterol inhaler and a course of antibiotics for the COPD flare. Departure - Departure Disposition: 01 Home, Self Care Clinical Impression: COPD exacerbation, Cervical radiculopathy at C5 Condition: Good Record reviewed to determine appropriate education?: Yes Instructions: ED COPD Flare, ED Cervical Radiculopathy Prescriptions: Albuterol Sulf [Ventolin Hfa Inhaler] 1 - 2 puffs INH Q4HR PRN #1 inhaler PRN Reason: Shortness Of Air/Wheezing Doxycycline Hyclate 100 mg PO BID #14 capsule predniSONE [Deltasone] 20 mg PO [id number] #21 tab Comments: As discussed, your work-up today shows that you do have evidence of COPD which I think is causing the exertional shortness of breath that you have been having, he also have pinched nerves in your neck which is likely causing the numbness and tingling in your's. Between the steroids and antibiotics this should all get better. Follow-up with your doctor for further evaluation and treatment, return for new or worsening symptoms. Try to stay out of the sun while on the antibiotics, they tend to make you sun sensitive.
[2019-07-29 14:00] LABS: BASOPHILS % (AUTO) 0.3 %; EOSINOPHILS # (AUTO) 0.1 10^3/uL (0.0-0.7); EOSINOPHILS % (AUTO) 1.4 %; HGB - HEMOGLOBIN 12.6 g/dL (12.0-16.0); LYMPHOCYTES # (AUTO) 2.8 10^3/uL (1.5-3.5); LYMPHOCYTES % (AUTO) 48.4 %; MEAN CORPUSCULAR HEMOGLOBIN 33.1 pg (27.0-31.0); MEAN CORPUSCULAR HGB CONC 31.5 g/dL (32.0-36.0); MEAN PLATELET VOLUME 9.3 fL (7.9-10.8); MONOCYTES # (AUTO) 0.5 10^3/uL (0.0-1.0); MONOCYTES % (AUTO) 7.7 %; NEUTROPHILS # (AUTO) 2.5 10^3/uL (1.5-6.6); PLT - PLATELET COUNT 110 10^3/uL (130-450); RED BLOOD COUNT 3.81 10^6/uL (4.20-5.40); RED CELL DISTRIBUTION WIDTH 13.6 % (12.0-15.0); WHITE BLOOD COUNT 5.8 x10^3/uL (4.8-10.8)
[2019-07-29 14:19] LABS: ALBUMIN 3.6 g/dL (3.2-5.5); ALBUMIN/GLOBULIN RATIO 1.3 (1.0-2.2); BILIRUBIN,TOTAL 1.3 mg/dL (0.2-1.0); CALCIUM 8.6 mg/dL (8.5-10.3); CREATININE 0.9 mg/dL (0.4-1.0); TOTAL PROTEIN 6.3 g/dL (6.7-8.2)
--- NOTE | 2019-07-29 14:34 | XRAY Report ---
Reason: dyspnea Procedure Date: 07/29/2019 Accession Number: [id number] / [id number] Procedure: XR - Chest 2 View X-Ray CPT Code: 62897 Final Report FULL RESULT: EXAM: CHEST RADIOGRAPHY EXAM DATE: 07/29/2019 02:13 PM. CLINICAL HISTORY: Dyspnea. COMPARISON: CHEST 2 VIEW 07/11/2019 9:57 AM. TECHNIQUE: 2 views. FINDINGS: Lungs/Pleura: Lucent lungs are compatible with COPD. Central bronchial wall thickening is noted. Interstitial prominence also seen. No focal dense airspace consolidation. Unchanged trace basal pleural effusions versus pleural thickening. The thorax. Mediastinum: Heart and mediastinal contours are unremarkable. Atherosclerotic calcification of the aortic arch. Other: None. IMPRESSION: 1. COPD is evident with bilateral central bronchial wall thickening that could reflect reactive airways and bronchitis. No definite pneumonia seen. 2. Interstitial prominence also noted which could reflect vascular congestion or possibly interstitial pulmonary edema. RADIA
--- NOTE | 2019-07-29 14:41 | CT Report ---
Reason: bilateral UE pain/tingling Procedure Date: 07/29/2019 Accession Number: [id number] / [id number] Procedure: CT - CERVICAL SPINE WO CPT Code: Final Report FULL RESULT: EXAM: CT CERVICAL SPINE WITHOUT CONTRAST DATE: 07/29/2019 02:04 PM. HISTORY: Upper extremity pain and tingling COMPARISONS: CERVICAL SPINE W/O 11/22/2016 2:13 PM. TECHNIQUE: Thin-section axial images were acquired of the cervical spine without contrast. Post-processing: Coronal and sagittal reformats. Other: None. In accordance with CT protocol optimization, one or more of the following dose reduction techniques were utilized for this exam: automated exposure control, adjustment of mA and/or KV based on patient size, or use of iterative reconstructive technique. FINDINGS: Alignment: There is very mild degenerative anterolisthesis of C3 on C4 and C4 on C5. There is no evidence of acute dislocation. There is reversal of the normal cervical lordosis. Bones: Normal mineralization. No acute fractures. No suspicious bony lesions. Interspace Levels/Facets: C1-C2: Unremarkable. C2-C3: Unremarkable. C3-C4: There is moderate left-sided neural foramen narrowing secondary to diskovertebral hypertrophy and facet arthrosis. C4-C5: Unremarkable. C5-C6: There is mild bilateral neural foramen narrowing secondary to diskovertebral hypertrophy and facet arthrosis. C6-C7: Unremarkable. C7-T1: Unremarkable. Musculature: No significant abnormalities. Other: There is emphysema. The lung apices demonstrate no acute abnormalities. There is no prevertebral soft tissue swelling. IMPRESSION: 1. No fracture or dislocation. 2. There is moderate left-sided neural foramen narrowing at the C3-C4 level. There is mild bilateral neural foramen narrowing at the C5-C6 level. 3. The lung apices demonstrate emphysema. RADIA
[2019-07-29 15:05] VITALS: BP 150/80
== END 2019-07-29 15:06 | disposition home or self-care (01) ==
LOC: ED 12:31
DX: J44.1 Chronic obstructive pulmonary disease with (acute) exacerbation (principal); M50.122 Cervical disc disorder at C5-C6 level with radiculopathy; R20.2 Paresthesia of skin; F03.90 Unspecified dementia, unspecified severity, without behavioral disturbance, psychotic disturbance, mood disturbance, and anxiety
CPT/HCPCS: 36415; 71046; 72125; 80053; 82550; 83690; 84484; 85025; 93005; 99284

== ENCOUNTER 2019-07-31 17:24 | Emergency (ER) | payer MEDICARE, OTHER ==
--- NOTE | 2019-07-31 18:11 | ED Physician Documentation ---
History of Present Illness - Stated complaint Stated Complaint: RINGING EARS,BURNING THROAT - Chief complaint Chief Complaint: Heent - History obtained from History obtained from: Patient, Family - History of Present Illness Timing: Today Pain level max: 4 Pain level now: 3 - Additonal information Additional information: 83-year-old female presents to the emergency department stating that she took her doxycycline tonight and used her albuterol inhaler. Started to have a burning sensation in her throat after that. This is improving since that time. She is able to eat and drink since that time. Does not feel like there is anything stuck. No itching. No rash. No difficulty breathing. Nothing makes it better or worse. 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 Cardiovascular: Coronary stent HEENT: Tonsil/Adenoidectomy - Present Medications Home Medications: Ambulatory Orders Medication Instructions Recorded Confirmed FLUoxetine [PROzac] 10 mg ORAL DAILY 01/27/18 07/31/19 lisinopriL [Lisinopril] 10 mg ORAL DAILY 01/27/18 Albuterol Sulf [Ventolin Hfa 1 - 2 puffs INH Q4HR PRN #1 inhaler 07/29/19 Inhaler] Doxycycline Hyclate 100 mg PO BID #14 capsule 07/29/19 predniSONE [Deltasone] 20 mg PO [id number] #21 tab 07/29/19 07/31/19 - Allergies Allergies/Adverse Reactions: Allergies Allergy/AdvReac Type Severity Reaction Status Date / Time No Known Drug Allergies Allergy Verified 07/31/19 17:35 - Social History Does the pt smoke?: No Smoking Status: Never smoker Does the pt drink ETOH?: No Does the pt have substance abuse?: No - Immunizations Immunizations are current?: Yes - POLST Patient has POLST: No PD ED PE NORMAL - Vitals Vital signs reviewed: Yes - General General: Alert and oriented X 3, No acute distress, Well developed/nourished - HEENT HEENT: PERRL, Ears normal, Moist mucous membranes, Pharynx benign, Other (Mild posterior pharyngeal erythema without tonsillar exudates. Uvula midline. Normal phonation. No trismus.) - Neck Neck: Supple, no meningeal sign, No adenopathy - Cardiac Cardiac: RRR, Strong equal pulses - Respiratory Respiratory: No respiratory distress, Clear bilaterally - Abdomen Abdomen: Soft, Non tender, Non distended - Derm Derm: Warm and dry - Extremities Extremities: No edema - Neuro Neuro: Alert and oriented X 3 - Psych Psych: Normal mood, Normal affect Results - Vitals Vitals: Vital Signs - 24 hr 07/31/19 17:35 Temperature 36.3 C L Heart Rate 63 Respiratory 18 Rate Blood Pressure 193/88 H O2 Saturation 95 Oxygen O2 Source Room air PD MEDICAL DECISION MAKING - ED course Complexity details: considered differential, d/w patient, d/w family ED course: Patient with what appears to be a likely viral pharyngitis versus an abrasion of her throat. Spacer was given and spacer teaching performed. We will have her continue her antibiotic as well. This does not appear to be an allergic reaction. No evidence of anaphylaxis or angioedema. Patient and family counseled regarding signs and symptoms for which I believe and urgent re- evaluation would be necessary. Patient with good understanding of and agreement to plan and is comfortable going home at this time This document was made in part using voice recognition software. While efforts are made to proofread this document, sound alike and grammatical errors may occur. Departure - Departure Disposition: 01 Home, Self Care Clinical Impression: Abrasion of throat Qualifiers: Encounter type: initial encounter Qualified Code(s): S10.11XA - Abrasion of throat, initial encounter Condition: Good Instructions: ED Pharyngitis Viral Follow-Up: Bubba Amato DO [Primary Care Provider] - Comments: Continue the current medications at home. Return if you worsen. Follow-up with your doctor for further care. Make sure to use your albuterol with a spacer as this will decrease the amount of propellant that hits the back of her throat.
[2019-07-31 18:14] VITALS: BP 184/75
== END 2019-07-31 18:17 | disposition home or self-care (01) ==
LOC: ED 17:24
DX: S10.11XA Abrasion of throat, initial encounter (principal); X58.XXXA Exposure to other specified factors, initial encounter; Y93.89 Activity, other specified
CPT/HCPCS: 99282; 99284

== ENCOUNTER 2019-08-02 10:24 | Emergency (ER) | payer MEDICARE, OTHER ==
--- NOTE | 2019-08-02 11:46 | ED Physician Documentation ---
PD HPI FOCAL NEURO - Stated complaint Stated Complaint: WEAKNESS IN R ARM - Chief complaint Chief Complaint: Ext Problem - History obtained from History obtained from: Patient, Family - History of Present Illness Timing - onset: Today Timing - duration: Minutes Timing - details: Abrupt onset, Now resolved Severity of deficit: Moderate Weakness: Arm, Hand, Right Numbness: No: Face, Arm, Hand, Leg, Foot, Right, Left Associated symptoms: No: Headache, Nausea / vomiting, Seizure, Syncope, Fall, Head injury, Chest pain, Neck pain, Back pain Contributing factors: negative: Atrial fibrillation Baseline status: positive: Mildly confused Similar symptoms before: Diagnosis (cervical foraminal stenosis) Recently seen: Emergency Dept - Additional information Additional information: 83-year-old female who is recently been seen in the emergency department for above bronchitis with COPD exacerbation has had improvement with her treatment over the last 5 days. When she arrived to the emergency department on her initial evaluation she had tingling to both of her arms. A CT scan of the cervical spine revealed neuroforaminal narrowing consistent with the findings and the patient has had improvement in these symptoms and has started a course of prednisone. This morning she developed weakness to the right hand and arm that lasted approximately 15 minutes. She has resolution of her symptoms now. The weakness was specific to the right arm and hand. She feels that her respiratory symptoms are markedly improved. She was sitting eating when she could not potato picker a piece of toast. She was able to walk and talk and was accompanied by a daughter. Review of Systems Constitutional: denies: Fever Eyes: denies: Decreased vision Ears: denies: Ear pain Nose: denies: Rhinorrhea / runny nose, Congestion Throat: denies: Sore throat Cardiac: denies: Chest pain / pressure, Palpitations Respiratory: denies: Dyspnea, Cough GI: reports: Diarrhea. denies: Nausea, Vomiting : denies: Dysuria, Frequency Skin: denies: Rash Musculoskeletal: denies: Neck pain, Back pain, Extremity pain Neurologic: reports: Focal weakness. denies: Generalized weakness, Numbness, Difficulty speaking, Headache, Head injury, LOC PD PAST MEDICAL HISTORY - Past Medical History Past Medical History: Yes Cardiovascular: Congestive heart failure, Coronary artery disease, [place], Other Respiratory: COPD Neuro: Dementia, Other Endocrine/Autoimmune: None GI: Diverticulitis INTERNAL CONTROL SPECIALIST: None : None HEENT: Chronic vision loss Psych: Depression Musculoskeletal: None Derm: None - Past Surgical History Past Surgical History: Yes General: Colonoscopy /INTERNAL CONTROL SPECIALIST: section, Hysterectomy Cardiovascular: Coronary stent HEENT: Tonsil/Adenoidectomy - Present Medications Home Medications: Ambulatory Orders Medication Instructions Recorded Confirmed FLUoxetine [PROzac] 10 mg ORAL DAILY 01/27/18 07/31/19 lisinopriL [Lisinopril] 10 mg ORAL DAILY 01/27/18 Albuterol Sulf [Ventolin Hfa 1 - 2 puffs INH Q4HR PRN #1 inhaler 07/29/19 Inhaler] Doxycycline Hyclate 100 mg PO BID #14 capsule 07/29/19 predniSONE [Deltasone] 20 mg PO [id number] #21 tab 07/29/19 07/31/19 Clopidogrel [Plavix] 75 mg PO DAILY #21 tablet 08/02/19 - Allergies Allergies/Adverse Reactions: Allergies Allergy/AdvReac Type Severity Reaction Status Date / Time No Known Drug Allergies Allergy Verified 08/02/19 10:31 - Social History Does the pt smoke?: No Smoking Status: Never smoker Does the pt drink ETOH?: No Does the pt have substance abuse?: No - Immunizations Immunizations are current?: Yes - POLST Patient has POLST: No PD ED PE NORMAL - Vitals Vital signs reviewed: Yes (Hypertensive) - General General: No acute distress, Well developed/nourished - HEENT HEENT: Atraumatic, PERRL, EOMI - Neck Neck: Supple, no meningeal sign, No bony TTP - Cardiac Cardiac: RRR, No murmur - Respiratory Respiratory: No respiratory distress, Clear bilaterally - Abdomen Abdomen: Normal bowel sounds, Soft, Non tender, Non distended, No organomegaly - Back Back: No CVA TTP, No spinal TTP - Derm Derm: Normal color, Warm and dry, No rash - Extremities Extremities: No deformity, No edema - Neuro Neuro: co founder 2-12 intact, No motor deficit, No sensory deficit, Normal speech Eye Opening: Spontaneous Motor: Obeys Commands Verbal: Oriented GCS Score: 15 - Psych Psych: Normal mood, Normal affect NIHSS - Time Time: 11:30 - Level of Consciousness Level of consciousness: (0) Alert, Keenly responsive LOC Questions: (0) Answers both Q's correct LOC Commands: (0) Performs both correctly - Gaze Best Gaze: (0) Normal - Visual Visual: (0) No loss - Facial Palsy Facial Palsy: (0) Normal, symmetrical movement - Motor Arms (both separate) Motor Arm (right): (0) No drift Motor Arm (left): (0) No drift - Motor Legs (both separate) Motor Leg (right): (0) No drift Motor Leg (left): (0) No drift - Limb Ataxia Limb Ataxia: (0) Absent - Sensory Sensory: (0) Normal - Best Language Best Language: (0) No aphasia - Dysarthria Dysarthria: (0) Normal - Extinction and Inattention (formally neg Extinction and inattention: (0) No abnormality - Total Score/Results Total Score/Result: 0 Results - Vitals Vitals: Vital Signs - 24 hr 08/02/19 08/02/19 08/02/19 10:29 13:00 17:04 Temperature 36.4 C L Heart Rate 53 L 58 L 51 L Respiratory 16 20 15 Rate Blood Pressure 162/76 H 190/95 H 179/84 H O2 Saturation 97 98 95 08/02/19 17:06 Temperature 36.4 C L Heart Rate 52 L Respiratory 16 Rate Blood Pressure 179/84 H O2 Saturation 98 Oxygen O2 Source Room air - EKG (time done) 1150 Rate: Rate (enter#) (53) Rhythm: NSR [place]: RAD (borderline) Ischemia: ST depression (borderline diffuse) Compare to prior EKG: Unchanged from prior EKG (SPT 07-29-2019 no changes) Computer interpretation: Agree with computer - Labs Labs: Laboratory Tests 08/02/19 08/02/19 08/02/19 12:05 12:05 13:13 WBC 12.8 H RBC 4.16 L Hgb 14.2 Hct 42.6 MCV 102.4 H MCH 34.1 H MCHC 33.3 RDW 13.7 Plt Count 150 MPV 9.5 Neut # (Auto) 9.0 H Lymph # (Auto) 3.2 Park # (Auto) 0.4 Eos # (Auto) 0.0 Baso # (Auto) 0.0 Absolute Nucleated RBC 0.00 Nucleated RBC % 0.0 Sodium 139 Potassium 3.7 Chloride 104 Carbon Dioxide 26 Anion Gap 9.0 BUN 20 Creatinine 0.9 Estimated GFR (MDRD) 60 L Glucose 107 H Calcium 9.3 Total Bilirubin 1.3 H AST 16 ALT 13 Alkaline Phosphatase 52 Total Protein 6.9 Albumin 3.9 Globulin 3.0 Albumin/Globulin Ratio 1.3 Lipase 47 Urine Color YELLOW Urine Clarity CLEAR Urine pH 6.0 Ur Specific [place] 1.015 Urine Protein NEGATIVE Urine Glucose (UA) NEGATIVE Urine Ketones NEGATIVE Urine Occult Blood NEGATIVE Urine Nitrite NEGATIVE Urine Bilirubin NEGATIVE Urine Urobilinogen 0.2 (NORMAL) Ur Leukocyte Esterase NEGATIVE Ur Microscopic Review NOT INDICATED Urine Culture Comments NOT INDICATED - Rads (name of study) neck CTA Radiology: Prelim report reviewed (Impression: 1. 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 2 Greater than 80% stenosis of the proximal right ICA. 3 Calcifications without significant narrowing of proximal left ICA. 4. 2 areas of moderate left vertebral stenosis.), EMP read indepedently, See rad report head CTA Radiology: Prelim report reviewed (Impression: Head CT: No CT evidence of acute abnormality. Mild microvascular white matter disease. Mild diffuse volume loss. No abnormal enhancement. CTA head: No evidence of large vessel occlusion. 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 Possible 2 mm left MCA bifurcation aneurysm. Moderate left ECA stenosis. Severe bilateral CONCILIATOR stenosis. Above findings similar to 2019 MRA.), EMP read indepedently, See rad report carotid doppler Radiology: Prelim report reviewed (Impression: 1. Large amount of calcified plaques in distal right CCA, right bulb, and proximal/mid right ICA. Doppler evaluation of proximal/mid right ICA is technically inadequate due to shielding from the calcified plaques, therefore would defer to the recent CTA. No other hemodynamically significant right carotid stenosis identified by NASCET criteria. 2. Scattered calcified plaques in the left carotid, without hemodynamically significant stenosis by NASCET criteria. 3. Nonvisualization of right vertebral artery. Recent CTA suggest occlusion or chronic high-grade stenosis of right vertebral artery. 4. Antegrade flow in the patent left vertebral artery.), EMP read indepedently, See rad report Procedures - IVC sono (time) 3256 Bedside IVC sono: IVC measures (cm) (1.50), Euvolemia PD MEDICAL DECISION MAKING - ED course Complexity details: reviewed old records, reviewed results, re-evaluated patient, considered differential, d/w patient ED course: 83-year-old female with early dementia and known carotid disease has had today what sounds like a TIA. She has been seen in the emergency department recently with tingling in her arms bilaterally and this was attributed to findings in her neck. Today the episode is consistent with TIA and that there was a motor component lasting only 15 minutes the completely resolved. CTA of her neck is abnormal for greater than 80% stenosis of the internal carotid on the right and this artery has been followed over the past several years. Dr. Dai shop and alteration tailor for the patient's neurologist at [facility] is consulted in the case and recommends conservative therapy and addition of clopidogrel for 3 weeks. He rationalizes the patient's reversible right-sided deficit isolated to the arm and without a aphasia and with findings of a normal carotid on the left side indicating this is likely a small vessel disease. The patient does not have diabetes. She is not dehydrated. We will add clopidogrel for the next 3 weeks and have the patient follow-up with her neurologist. Departure - Departure Disposition: 01 Home, Self Care Clinical Impression: TIA (transient ischemic attack) Condition: Stable Instructions: ED Transient Ischemic Attack Follow-Up: Bubba Amato DO [Primary Care Provider] - JORJE MENSAH [Physician No Access] - Prescriptions: Clopidogrel [Plavix] 75 mg PO DAILY #21 tablet Discharge Date/Time: 08/02/19 17:08
[2019-08-02] MEDS ORDERED: IOVERSOL 320 100 ML VIAL IVP ONE ×2 (11:52→13:05)
[2019-08-02 12:12] LABS: BASOPHILS % (AUTO) 0.2 %; EOSINOPHILS % (AUTO) 0.1 %; HGB - HEMOGLOBIN 14.2 g/dL (12.0-16.0); LYMPHOCYTES # (AUTO) 3.2 10^3/uL (1.5-3.5); LYMPHOCYTES % (AUTO) 25.3 %; MEAN CORPUSCULAR HEMOGLOBIN 34.1 pg (27.0-31.0); MEAN CORPUSCULAR HGB CONC 33.3 g/dL (32.0-36.0); MEAN CORPUSCULAR VOLUME 102.4 fL (81.0-99.0); MEAN PLATELET VOLUME 9.5 fL (7.9-10.8); MONOCYTES # (AUTO) 0.4 10^3/uL (0.0-1.0); MONOCYTES % (AUTO) 3.3 %; NEUTROPHILS % (AUTO) 70.3 %; PLT - PLATELET COUNT 150 10^3/uL (130-450); RED BLOOD COUNT 4.16 10^6/uL (4.20-5.40); RED CELL DISTRIBUTION WIDTH 13.7 % (12.0-15.0); WHITE BLOOD COUNT 12.8 x10^3/uL (4.8-10.8)
[2019-08-02 12:26] LABS: ALBUMIN 3.9 g/dL (3.2-5.5); ALBUMIN/GLOBULIN RATIO 1.3 (1.0-2.2); BILIRUBIN,TOTAL 1.3 mg/dL (0.2-1.0); CALCIUM 9.3 mg/dL (8.5-10.3); CREATININE 0.9 mg/dL (0.4-1.0); TOTAL PROTEIN 6.9 g/dL (6.7-8.2)
[2019-08-02 13:28] LABS: BILIRUBIN,URINE NEGATIVE (NEGATIVE); GLUCOSE, URINE (UA) NEGATIVE (NEGATIVE); KETONES,URINE (UA) NEGATIVE (NEGATIVE); LEUKOCYTE ESTERASE, URINE NEGATIVE (NEGATIVE); NITRITE,URINE NEGATIVE (NEGATIVE); OCCULT BLOOD,URINE NEGATIVE (NEGATIVE); PROTEIN,URINE NEGATIVE (NEGATIVE); UROBILINOGEN,URINE 0.2 (NORMAL) E.U./dL (NORMAL)
[2019-08-02 13:29] LABS: CLARITY,URINE CLEAR (CLEAR)
--- NOTE | 2019-08-02 13:59 | CT Report ---
Reason: right arm weakness resolved Procedure Date: 08/02/2019 Accession Number: [id number] / [id number] Procedure: CT - ANGIO HEAD W/WO CPT Code: Final Report FULL RESULT: EXAM: CT ANGIOGRAM HEAD. CT SCAN OF THE HEAD WITHOUT AND WITH CONTRAST. EXAM DATE: 08/02/2019 01:04 PM CLINICAL HISTORY: Right arm weakness resolved. COMPARISON: HEAD W/O 01/27/2018 6:11 PM BRAIN ANGIO W/O 10/17/2018 9:47 AM. TECHNIQUE: - CT Scan Head: Using a multidetector scanner, axial images were acquired from the foramen magnum to the skull vertex prior to and following contrast administration. - CT Angiogram: Using a multidetector scanner, high-resolution axial images were acquired from the skull base through vertex following rapid infusion of intravenous contrast. Reformats: Multiplanar MIP reformats were reconstructed. NASCET criteria used for stenosis measurement. IV Contrast: OPTIRAY 320. In accordance with CT protocol optimization, one or more of the following dose reduction techniques were utilized for this exam: automated exposure control, adjustment of mA and/or KV based on patient size, or use of iterative reconstructive technique. FINDINGS: NON-CONTRAST HEAD: Parenchyma: No intraparenchymal hemorrhage. Areas of low density involving white matter of the cerebral hemispheres. No evidence of mass, midline shift, or CT findings of infarction. Extraaxial Spaces: No subdural or epidural collections identified. Ventricles: Mild enlargement. No mass-effect or midline shift. Sinuses and orbits: Imaged paranasal sinuses, orbits, and mastoids show no significant abnormality. Bones: No evidence of fracture or calvarial defect. Other: None. POST-CONTRAST HEAD: No abnormal enhancement. CT ANGIOGRAM HEAD: There is a 3 mm aneurysm from the left PICA origin. There is dense calcification of bilateral carotid siphons. There is moderate narrowing of bilateral cavernous ICA segments. Right A1 SILVER segment is hypoplastic. There is moderate narrowing of left and mild narrowing of right A2 SILVER segments. At least 2 areas of mild narrowing of left M2 MCA branches. 2 mm slight outpouching of left MCA bifurcation. 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 There is severe narrowing of left P1 P2 HAND TUBE BENDER junction. There is severe narrowing of right P2 HAND TUBE BENDER segment. DURAL VENOUS SINUSES AND MAJOR CENTRAL VEINS: Patent. IMPRESSION: CT Head: No CT evidence of acute abnormality. Mild microvascular white matter disease. Mild diffuse volume loss. No abnormal enhancement. CTA Head: No evidence of large vessel occlusion. 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 Possible 2 mm left MCA bifurcation aneurysm. Moderate left SILVER stenosis. Severe bilateral HAND TUBE BENDER stenoses. Above findings similar to 2019 MRA. RADIA
--- NOTE | 2019-08-02 14:05 | CT Report ---
Reason: right arm weakness resolved Procedure Date: 08/02/2019 Accession Number: [id number] / [id number] Procedure: CT - ANGIO NECK W CPT Code: Final Report FULL RESULT: EXAM: CT ANGIOGRAM NECK EXAM DATE: 08/02/2019 01:04 PM. CLINICAL HISTORY: Right arm weakness resolved. COMPARISON: HEAD W/O 01/27/2018 6:11 PM BRAIN ANGIO W/O 10/17/2018 9:47 AM. TECHNIQUE: Routine axial helical imaging was performed from the skull base through the aortic arch. Reconstructions: Routine multiplanar 3D MIP reconstructions. IV Contrast: OPTIRAY 320. Evaluation of arterial stenosis is based on a NASCET method of measurement. In accordance with CT protocol optimization, one or more of the following dose reduction techniques were utilized for this exam: automated exposure control, adjustment of mA and/or KV based on patient size, or use of iterative reconstructive technique. FINDINGS: There are dense calcifications of the aortic arch. Right Carotid: Proximal most aspect of right CCA not included. There are calcifications throughout right CCA with multiple areas of mild narrowing. There is 50% stenosis of the right CCA just proximal to the bifurcation. There is dense circumferential calcification of the proximal left ICA with greater than 80% stenosis (lumen obscured by calcification). Remainder of right cervical ICA normal in caliber.. Left Carotid: There are scattered calcifications of the left common carotid without significant narrowing. There is calcification of the proximal left ICA without stenosis. Remainder of left cervical ICA unremarkable. Vertebrals: Proximal to mid right vertebral is not visualized. There is faint opacification of mid to distal right vertebral artery. There is calcification there is a band with moderate narrowing of the proximal left vertebral artery. There was a second band with moderate narrowing of the left V2 V3 junction. There is calcification of the V4 segment without focal narrowing. Intracranial Circulation: Please see separately dictated intracranial CTA. Other: Severe emphysema. Soft tissues of neck unremarkable. Mild degenerative changes of cervical spine. IMPRESSION: 1. 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 2. Greater than 80% stenosis of the proximal right ICA. 3. Calcifications without significant narrowing of proximal left ICA. 4. 2 areas of moderate left vertebral stenosis. RADIA
--- NOTE | 2019-08-02 16:58 | Ultrasound Report ---
Reason: stenosis on CTA ? significance Procedure Date: 08/02/2019 Accession Number: [id number] / [id number] Procedure: US - Carotid Doppler Complete CPT Code: Final Report FULL RESULT: EXAM: BILATERAL CAROTID DUPLEX DOPPLER ULTRASOUND: EXAM DATE: 08/02/2019 04:09 PM CLINICAL HISTORY: Stenosis on CTA ? significance. COMPARISON: Carotid ultrasound 10/30/2017, CTA head and neck today. TECHNIQUE: Grayscale imaging, color Doppler, and duplex spectral Doppler were used to evaluate the carotid and vertebral arteries bilaterally. Static images were obtained. FINDINGS: Large amount calcified plaques in distal right CCA, right carotid bulb and proximal/mid right ICA with acoustic shadowing. Focal calcified plaques in proximal right CCA. Mild diffuse right CCA intimal thickening. Moderate calcified plaques in proximal ECA. Scattered calcified plaques in left CCA, more extensive distally. Prominent calcified plaque in left carotid bulb with extension into proximal left ICA. Patent ECA. Antegrade flow in left vertebral artery. Right vertebral artery is not identified. VELOCITIES (cm/s): Right CCA mid: PSV 68.8 cm/s CCA dist: PSV 81.5 cm/s ICA prox: PSV 85.7 cm/s, EDV 5.0 cm/s ICA mid: PSV 49.4 cm/s, EDV 8.1 cm/s ICA dist: PSV 48.5 cm/s, EDV 9.4 cm/s ECA: PSV 97.4 cm/s Vert: Not seen. ICA/CCA: 1.1 Left CCA mid: PSV 46 cm/s CCA dist: PSV 43.9 cm/s ICA prox: PSV 31.0 cm/s, EDV 2.3 cm/s ICA mid: PSV 60.6 cm/s, EDV 16.9 cm/s ICA dist: PSV 80.3 cm/s, EDV 4.6 cm/s ECA: PSV 123 cm/s Vert: PSV 44.1 cm/s ICA/CCA: 1.7 ICA diameter stenosis: Right: <50% by velocity and <70% by NASCET criteria. Left: <50% by velocity and <70% by NASCET criteria. IMPRESSION: 1. Large amount calcified plaques in distal right CCA, right bulb, and proximal/mid right ICA. Doppler evaluation of proximal/mid right ICA is technically inadequate due to shielding from the calcified plaques, therefore would defer to the recent CTA. No other hemodynamically significant right carotid stenosis identified by NASCET criteria. 2. Scattered calcified plaques in left carotid, without hemodynamically significant stenosis by NASCET criteria. 3. Nonvisualization of right vertebral artery. Recent CTA suggests occlusion or chronic high-grade stenosis of right vertebral artery. 4. Antegrade flow in the patent left vertebral artery. General Recommendations: Stenosis =50% ICA - Follow-up ultrasound 6-12 months Stenosis <50% ICA - High Risk Patient with plaque - Follow-up ultrasound 1-2 years Normal Study but High Risk Patient - Follow-up ultrasound 3-5 years Management recommendations and diagnostic criteria are based on current IAC endorsed standards in Carotid Artery Stenosis: Grayscale and Doppler Ultrasound Diagnosis. Validated velocity measurements with angiographic measurements and velocity criteria are extrapolated from diameter data as defined by the Society of Radiologists in Ultrasound Consensus Conference Radiology 2003; 229;340-346. RADIA
[2019-08-02 17:05] VITALS: BP 179/84
== END 2019-08-02 17:08 | disposition home or self-care (01) ==
LOC: ED 10:24
DX: G45.9 Transient cerebral ischemic attack, unspecified (principal); R03.0 Elevated blood-pressure reading, without diagnosis of hypertension; F03.90 Unspecified dementia, unspecified severity, without behavioral disturbance, psychotic disturbance, mood disturbance, and anxiety
CPT/HCPCS: 36415; 70496; 70498; 80053; 81003; 83690; 85025; 93005; 93880; 99284; Q9967; 81001; 87086

== ENCOUNTER 2019-08-03 09:41 | Emergency (ER) | payer MEDICARE, OTHER ==
--- NOTE | 2019-08-03 10:18 | ED Physician Documentation ---
PD HPI FOCAL NEURO - Stated complaint Stated Complaint: R SIDE WEAKNESS - Chief complaint Chief Complaint: Neuro - History obtained from History obtained from: Patient, Family - History of Present Illness Timing - onset: Enter time (299), Today Timing - duration: Hours Timing - details: Abrupt onset, Now resolved Severity of deficit: Moderate Weakness: Arm, Hand, Right Numbness: No: Face, Arm, Hand, Leg, Foot, Right, Left Associated symptoms: No: Headache, Nausea / vomiting, Seizure, Syncope, Fall, Head injury, Chest pain, Neck pain, Back pain, Fever Contributing factors: positive: Vascular dz Baseline status: positive: Mildly confused Similar symptoms before: Diagnosis (tia) Recently seen: Emergency Dept (yesterday) Review of Systems Constitutional: denies: Fever Eyes: denies: Decreased vision, Photophobia Ears: denies: Ear pain Nose: denies: Rhinorrhea / runny nose, Congestion Throat: denies: Sore throat Cardiac: denies: Chest pain / pressure Respiratory: denies: Dyspnea, Cough GI: denies: Abdominal Pain, Nausea, Vomiting : denies: Dysuria, Frequency Skin: denies: Rash Musculoskeletal: denies: Neck pain, Back pain, Extremity pain Neurologic: reports: Focal weakness. denies: Generalized weakness, Numbness, Difficulty speaking, Near syncope, Headache, Head injury, LOC PD PAST MEDICAL HISTORY - Past Medical History Cardiovascular: Congestive heart failure, Coronary artery disease, [place], Other Respiratory: COPD Neuro: Dementia, Other Endocrine/Autoimmune: None GI: Diverticulitis SEWER CONNECTOR: None : None HEENT: Chronic vision loss Psych: Depression Musculoskeletal: None Derm: None - Past Surgical History Past Surgical History: Yes General: Colonoscopy /SEWER CONNECTOR: section, Hysterectomy Cardiovascular: Coronary stent HEENT: Tonsil/Adenoidectomy - Present Medications Home Medications: Ambulatory Orders Medication Instructions Recorded Confirmed FLUoxetine [PROzac] 10 mg ORAL DAILY 01/27/18 07/31/19 lisinopriL [Lisinopril] 10 mg ORAL DAILY 01/27/18 Albuterol Sulf [Ventolin Hfa 1 - 2 puffs INH Q4HR PRN #1 inhaler 07/29/19 Inhaler] Doxycycline Hyclate 100 mg PO BID #14 capsule 07/29/19 predniSONE [Deltasone] 20 mg PO [id number] #21 tab 07/29/19 07/31/19 Clopidogrel [Plavix] 75 mg PO DAILY #21 tablet 08/02/19 - Allergies Allergies/Adverse Reactions: Allergies Allergy/AdvReac Type Severity Reaction Status Date / Time No Known Drug Allergies Allergy Verified 08/02/19 10:31 - Social History Does the pt smoke?: No Smoking Status: Never smoker Does the pt drink ETOH?: No Does the pt have substance abuse?: No - Immunizations Immunizations are current?: Yes - POLST Patient has POLST: No PD ED PE NORMAL - Vitals Vital signs reviewed: Yes (hypertensive ) - General General: No acute distress, Well developed/nourished - HEENT HEENT: Atraumatic, PERRL, EOMI - Neck Neck: Supple, no meningeal sign, No bony TTP - Cardiac Cardiac: RRR, No murmur - Respiratory Respiratory: No respiratory distress, Clear bilaterally - Abdomen Abdomen: Soft, Non tender - Back Back: No CVA TTP, No spinal TTP - Derm Derm: Normal color, Warm and dry, No rash - Extremities Extremities: No deformity, No edema, No calf tenderness / cord - Neuro Neuro: senior information security architect 2-12 intact, No motor deficit, No sensory deficit, Normal speech Eye Opening: Spontaneous Motor: Obeys Commands Verbal: Oriented GCS Score: 15 - Psych Psych: Normal mood, Normal affect NIHSS - Time Time: 10:03 - Level of Consciousness Level of consciousness: (0) Alert, Keenly responsive LOC Questions: (0) Answers both Q's correct LOC Commands: (0) Performs both correctly - Gaze Best Gaze: (0) Normal - Visual Visual: (1) Partial hemianopia - Facial Palsy Facial Palsy: (0) Normal, symmetrical movement - Motor Arms (both separate) Motor Arm (right): (0) No drift Motor Arm (left): (0) No drift - Motor Legs (both separate) Motor Leg (right): (0) No drift Motor Leg (left): (0) No drift - Limb Ataxia Limb Ataxia: (0) Absent - Sensory Sensory: (0) Normal - Best Language Best Language: (0) No aphasia - Dysarthria Dysarthria: (0) Normal - Extinction and Inattention (formally neg Extinction and inattention: (0) No abnormality - Total Score/Results Total Score/Result: 1 Results - Vitals Vitals: Vital Signs - 24 hr 08/03/19 09:53 Temperature 36.3 C L Heart Rate 48 L Respiratory 18 Rate Blood Pressure 189/76 H O2 Saturation 97 Oxygen O2 Source Room air - EKG (time done) 1035 Rate: Rate (enter#) (49) Rhythm: Sinus bradycardia Intervals: Wide QRS (borderline) Compare to prior EKG: Unchanged from prior EKG ([facility] 08-02-2019 no changes) Computer interpretation: Disagree with computer (I do not see ST depression in inferior leads) - Labs Labs: Laboratory Tests 08/03/19 10:20 WBC 12.1 H RBC 4.24 Hgb 14.4 Hct 43.7 MCV 103.1 H MCH 34.0 H MCHC 33.0 RDW 13.8 Plt Count 170 MPV 9.4 PD MEDICAL DECISION MAKING - ED course Complexity details: reviewed old records, reviewed results, re-evaluated patient, considered differential, d/w patient, d/w family ED course: 83-year-old female with the fourth visit to the emergency department in the past week has had another episode this morning of right arm weakness and clumsiness. This episode lasted longer. It started about 3 AM and was still present this morning prior to bringing the patient to the emergency department. The symptoms are now resolved. She has had extensive work-up yesterday including imaging of the carotid arteries and cerebral arteries. 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 The disease is worse in the right than the left. Yesterday I consulted Dr. Dai and our plan was to provide clopidogrel for the patient for 3 weeks and today I have contacted the hospitalist at [facility] in [place] where the patient's neurologist is and I have asked him to complete a work-up on this patient to include MR which we are not able to do here until Monday of next week and she has not had a formal echo. I did find in the patient's history a remote reference to a single episode of atrial fibrillation [address] Dan hospitalist at [facility] graciously agrees to accept the patient in transfer for further work up. Departure - Departure Disposition: 02 Transfer Acute Care Hosp Clinical Impression: TIA (transient ischemic attack)
[2019-08-03 10:43] LABS: BASOPHILS % (AUTO) 0.3 %; EOSINOPHILS % (AUTO) 0.3 %; HGB - HEMOGLOBIN 14.4 g/dL (12.0-16.0); LYMPHOCYTES % (AUTO) 47.3 %; MEAN CORPUSCULAR VOLUME 103.1 fL (81.0-99.0); MEAN PLATELET VOLUME 9.4 fL (7.9-10.8); MONOCYTES % (AUTO) 6.5 %; NEUTROPHILS % (AUTO) 45.1 %; PLT - PLATELET COUNT 170 10^3/uL (130-450); RED BLOOD COUNT 4.24 10^6/uL (4.20-5.40); RED CELL DISTRIBUTION WIDTH 13.8 % (12.0-15.0); WHITE BLOOD COUNT 12.1 x10^3/uL (4.8-10.8)
[2019-08-03 10:48] LABS: ABNORMAL LYMPHS % (MANUAL) 0 %; BAND NEUTROPHILS % (MANUAL) 0 %
[2019-08-03 10:59] LABS: ALBUMIN 3.9 g/dL (3.2-5.5); ALBUMIN/GLOBULIN RATIO 1.3 (1.0-2.2); BILIRUBIN,TOTAL 1.3 mg/dL (0.2-1.0); CALCIUM 9.3 mg/dL (8.5-10.3)
[2019-08-03 11:30] LABS: LYMPHOCYTES # (MANUAL) 4.5 10^3/uL (1.5-3.5); LYMPHOCYTES % (MANUAL) 19 %; MONOCYTES # (MANUAL) 1.5 10^3/uL (0.0-1.0)
[2019-08-03 11:31] LABS: DIFFERENTIAL COMMENT MANUAL DIFFERENTIAL
[2019-08-03 13:28] VITALS: BP 184/86
== END 2019-08-03 13:26 | disposition short-term general hospital (02) ==
LOC: ED 09:41
DX: G45.9 Transient cerebral ischemic attack, unspecified (principal); R00.1 Bradycardia, unspecified; R03.0 Elevated blood-pressure reading, without diagnosis of hypertension; F03.90 Unspecified dementia, unspecified severity, without behavioral disturbance, psychotic disturbance, mood disturbance, and anxiety
CPT/HCPCS: 36415; 80053; 83690; 85025; 93005; 99285

== ENCOUNTER 2019-09-13 13:20 | Outpatient (CLI) | payer MEDICARE, OTHER | END 2019-09-13 13:21 | disposition home or self-care (01) | LOC: RT 13:20 | PROVIDERS: ATTEND Family Medicine | DX: R06.09 Other forms of dyspnea (principal) | CPT/HCPCS: 94010 ==

== ENCOUNTER 2020-07-06 08:00 | Outpatient (CLI) | payer MEDICARE, OTHER ==
[2020-07-06 11:56] LABS: BASOPHILS % (AUTO) 0.6 %; EOSINOPHILS # (AUTO) 0.1 10^3/uL (0.0-0.7); HCT - HEMATOCRIT 43.6 % (37.0-47.0); LYMPHOCYTES # (AUTO) 3.4 10^3/uL (1.5-3.5); LYMPHOCYTES % (AUTO) 50.8 %; MEAN CORPUSCULAR HEMOGLOBIN 33.7 pg (27.0-31.0); MEAN CORPUSCULAR HGB CONC 32.1 g/dL (32.0-36.0); MEAN CORPUSCULAR VOLUME 105.1 fL (81.0-99.0); MEAN PLATELET VOLUME 9.7 fL (7.9-10.8); MONOCYTES # (AUTO) 0.5 10^3/uL (0.0-1.0); MONOCYTES % (AUTO) 6.8 %; NEUTROPHILS # (AUTO) 2.6 10^3/uL (1.5-6.6); NEUTROPHILS % (AUTO) 39.6 %; PLT - PLATELET COUNT 116 10^3/uL (130-450); RED BLOOD COUNT 4.15 10^6/uL (4.20-5.40); RED CELL DISTRIBUTION WIDTH 12.9 % (12.0-15.0); WHITE BLOOD COUNT 6.6 x10^3/uL (4.8-10.8)
[2020-07-06 13:06] LABS: ALBUMIN/GLOBULIN RATIO 1.5 (1.0-2.2); ALKALINE PHOSPHATASE 55 IU/L (42-121); ALT ALANINE AMINOTRANSFERASE 15 IU/L (10-60); AST ASPARTATE AMINOTRANSFERASE 17 IU/L (10-42); BILIRUBIN,TOTAL 1.4 mg/dL (0.2-1.0); BUN - BLOOD UREA NITROGEN 18 mg/dL (6-20); CALCIUM 9.3 mg/dL (8.5-10.3); CARBON DIOXIDE - CO2 26 mmol/L (21-32); CHLORIDE 109 mmol/L (101-111); CHOL/HDL RATIO 3.6 (<4.4); CHOLESTEROL 122 mg/dL; GFR - MDRD 53 (>89); GLUCOSE 93 mg/dL (70-100); HDL CHOLESTEROL 34 mg/dL; LDL CHOLESTEROL,CALCULATED 70 mg/dL; LDL/HDL RATIO 2.1 (<4.4); POTASSIUM 4.4 mmol/L (3.5-5.0); SODIUM 142 mmol/L (135-145); TOTAL PROTEIN 6.7 g/dL (6.7-8.2); TRIGLYCERIDES 89 mg/dL; VLDL CHOLESTEROL 18 mg/dL
[2020-07-06 13:16] LABS: THYROID STIMULATING HORMONE 1.56 uIU/mL (0.34-5.60)
== END 2020-07-06 23:59 | disposition home or self-care (01) ==
LOC: LAB.WCP 08:00
PROVIDERS: ATTEND Family Medicine
DX: I63.9 Cerebral infarction, unspecified (principal); I25.10 Atherosclerotic heart disease of native coronary artery without angina pectoris; I48.91 Unspecified atrial fibrillation
CPT/HCPCS: 36415; 80053; 80061; 83721; 84443; 85025

== ENCOUNTER 2020-07-09 22:07 | Emergency (ER) | payer MEDICARE, OTHER ==
--- NOTE | 2020-07-09 22:23 | ED Physician Documentation ---
PD HPI Fall - Stated complaint Stated Complaint: GLF/RT SIDE PX - History obtained from History obtained from: Patient (limited HPI due to dementia), Family - History of Present Illness Mechanism of injury: Unknown Where injury occurred: Home Timing - onset: Today Injury(ies) location: Right Upper Extremity Associated symptoms: No: AMS (baseline mental status per daughter) Contributing factors: No: Anticoagulated, Intoxicated Recently seen: Not recently seen - Additional information Additional information: presents after unwitnessed fall. patient has dementia and thus does not recall events (she does not remember falling). Patient's daughter is in ED at bedside, says she was told by patient's that patient had unwitnessed fall tonight. Per daughter, patient is at baseline mental status. Review of Systems Unable to obtain: Confused, Dementia PD PAST MEDICAL HISTORY - Past Medical History Cardiovascular: Congestive heart failure, Coronary artery disease, [place], Other Respiratory: COPD Neuro: Dementia, Other Endocrine/Autoimmune: None GI: Diverticulitis PROBATION MANAGER: None : None HEENT: Chronic vision loss Psych: Depression Musculoskeletal: None Derm: None - Past Surgical History Past Surgical History: Yes General: Colonoscopy /PROBATION MANAGER: section, Hysterectomy Cardiovascular: Coronary stent HEENT: Tonsil/Adenoidectomy - Present Medications Home Medications: Ambulatory Orders Medication Instructions Recorded Confirmed FLUoxetine [PROzac] 10 mg ORAL DAILY 01/27/18 07/09/20 lisinopriL [Lisinopril] 10 mg ORAL DAILY 01/27/18 07/09/20 Albuterol Sulf [Ventolin Hfa 1 - 2 puffs INH Q4HR PRN #1 inhaler 07/29/19 07/09/20 Inhaler] - Allergies Allergies/Adverse Reactions: Allergies Allergy/AdvReac Type Severity Reaction Status Date / Time No Known Drug Allergies Allergy Verified 07/09/20 22:21 - Social History Does the pt smoke?: No Smoking Status: Never smoker Does the pt drink ETOH?: No Does the pt have substance abuse?: No - Immunizations Immunizations are current?: Yes - POLST Patient has POLST: No PD ED PE NORMAL - Vitals Vital signs reviewed: Yes - General General: No acute distress, Well developed/nourished, Other (awake, alert, conversant but confused; oriented to self but not place nor time/date) - HEENT HEENT: Atraumatic, PERRL, EOMI, Moist mucous membranes - Neck Neck: No bony TTP - Cardiac Cardiac: RRR - Respiratory Respiratory: No respiratory distress, Clear bilaterally - Abdomen Abdomen: Soft, Non tender - Back Back: No spinal TTP - Extremities Extremities: No edema - Neuro Neuro: lamination assembler 2-12 intact, No motor deficit, Normal speech (answers questions with clear answers but frequently the answers are incorrect (reflect confusion)) Eye Opening: Spontaneous Motor: Obeys Commands Verbal: Confused GCS Score: 14 PD ED PE EXPANDED - Extremities Extremities: Other (FROM bilateral hips without tenderness of pelvis (compression/distraction)) VALERIA UE/Hands Visual: 1 - bruising, swelling, tenderness 2 - bruising, laceration (skin tear), swelling, tenderness (mild) 3 - bruising, laceration (skin tears), swelling, tenderness Results - Vitals Vitals: Vital Signs - 24 hr 07/09/20 07/10/20 23:47 00:53 Temperature 36.5 C 36.5 C Heart Rate 56 L 60 Respiratory 16 15 Rate Blood Pressure 190/82 H 152/72 H O2 Saturation 100 99 Oxygen O2 Source Room air - Rads (name of study) right shoulder xrays Radiology: Prelim report reviewed, See rad report right forearm xrays Radiology: Prelim report reviewed, See rad report right wrist xrays Radiology: Prelim report reviewed, See rad report CT head Radiology: Prelim report reviewed, See rad report PD MEDICAL DECISION MAKING - ED course Complexity details: reviewed results, re-evaluated patient, considered different ial, d/w patient, d/w family ED course: no acute/emergent findings on radiology studies (CT head, plain film xrays of right shoulder, forearm, and wrist). She has good ROM in all joints of RUE despite bruising, swelling, and some superficial skin tears. Departure - Departure Disposition: 01 Home, Self Care Clinical Impression: Multiple abrasions Fall Qualifiers: Encounter type: initial encounter Qualified Code(s): W19.XXXA - Unspecified fall, initial encounter Shoulder contusion Qualifiers: Encounter type: initial encounter Laterality: right Qualified Code(s): S40.011A - Contusion of right shoulder, initial encounter Right wrist sprain Qualifiers: Encounter type: initial encounter Qualified Code(s): S63.501A - Unspecified sprain of right wrist, initial encounter Condition: Good Instructions: ED Abrasion, ED Fall Uncertain Cause, ED Sprain Wrist Follow-Up: Bubba Amato DO [Primary Care Provider] - (4-5 days if not improving) Comments: Wash the abrasions twice per day with soap and water. Be sure to dry the area thoroughly after washing, then apply an antibiotic ointment such as bacitracin before rewrapping the areas of injury. Discharge Date/Time: 07/10/20 00:53
[2020-07-10] MEDS ORDERED: BACITRACIN ZINC OINT 1 PACKET TOP STA (00:18)
[2020-07-10] MEDS ORDERED: TETANUS/DIPHTHERIA/PERTUSSIS 0.5 ML SYRINGE IM ONE (00:18)
[2020-07-10] MEDS ORDERED: ACETAMINOPHEN 325 MG TABLET PO STA (00:18)
[2020-07-10 00:55] VITALS: BP 152/72
--- NOTE | 2020-07-10 07:23 | CT Report ---
PROCEDURE: HEAD WO INDICATIONS: unwitnessed fall TECHNIQUE: Noncontrast 4.5 mm thick angled axial sections acquired from the foramen magnum to the vertex. For r adiation dose reduction, the following was used: automated exposure control, adjustment of mA and/or kV according to patient size. COMPARISON: 01/27/2018 FINDINGS: Image quality: Excellent. CSF spaces: Basal cisterns are patent. No extra-axial fluid collections. The ventricles are symmet ashleigh in size and shape. Brain: No intracranial bleeds or masses. There is cerebral volume loss for age, with resultant vent ricular and sulcal prominence. There are periventricular and deep white matter chronic small vessel ischemic changes. There is intracranial internal carotid artery and vertebral artery atherosclerosis . Skull and face: Calvarium and visualized facial bones appear intact, without suspicious lesions. Sinuses: Visualized sinuses and mastoids are clear. IMPRESSION: No acute intracranial disease process. Reviewed by: Amber Booth MD, PhD on 07/10/2020 7:22 AM PDT Approved by: Amber Booth MD, PhD on 07/10/2020 7:22 AM PDT Station ID: [id number]
--- NOTE | 2020-07-10 09:02 | XRAY Report ---
PROCEDURE: Wrist 4 View RT INDICATIONS: Fall, tenderness, swelling TECHNIQUE: 4 views of the wrist were acquired. COMPARISON: None FINDINGS: Bones: No fracture or dislocation. Degenerative changes of the triscaphe joint and first carpometacar pal joint. Scaphoid view: Intact scaphoid. Soft tissues: No suspicious soft tissue calcifications. IMPRESSION: No fracture demonstrated. Reviewed by: Miguel A Bob MD on 07/10/2020 9:01 AM PDT Approved by: Miguel A Bob MD on 07/10/2020 9:01 AM PDT Station ID: [id number]
--- NOTE | 2020-07-10 09:19 | XRAY Report ---
PROCEDURE: Forearm RT INDICATIONS: fall, tenderness, bruising TECHNIQUE: 2 views of the forearm were acquired. COMPARISON: None FINDINGS: Bones: No fractures or dislocations. No suspicious bony lesions. Soft tissues: No suspicious soft tissue calcifications or masses. IMPRESSION: No acute finding. Reviewed by: Miguel A Bob MD on 07/10/2020 9:17 AM PDT Approved by: Miguel A Bob MD on 07/10/2020 9:17 AM PDT Station ID: [id number]
--- NOTE | 2020-07-10 09:19 | XRAY Report ---
PROCEDURE: Shoulder 3 View RT INDICATIONS: Fall, tenderness, swelling TECHNIQUE: 2 views of the shoulder were acquired. COMPARISON: None. FINDINGS: Bones: No fractures or dislocations. No suspicious bony lesions. Visualized ribs appear intact. Soft tissues: No suspicious soft tissue calcifications. IMPRESSION: No acute finding. Reviewed by: Miguel A Bob MD on 07/10/2020 9:18 AM PDT Approved by: Miguel A Bob MD on 07/10/2020 9:18 AM PDT Station ID: [id number]
== END 2020-07-10 00:53 | disposition home or self-care (01) ==
LOC: ED 22:07
DX: S63.501A Unspecified sprain of right wrist, initial encounter (principal); S40.011A Contusion of right shoulder, initial encounter; S40.811A Abrasion of right upper arm, initial encounter; S50.311A Abrasion of right elbow, initial encounter; W19.XXXA Unspecified fall, initial encounter; Y92.009 Unspecified place in unspecified non-institutional (private) residence as the place of occurrence of the external cause; F03.90 Unspecified dementia, unspecified severity, without behavioral disturbance, psychotic disturbance, mood disturbance, and anxiety; R40.2412 Glasgow coma scale score 13-15, at arrival to emergency department; I25.10 Atherosclerotic heart disease of native coronary artery without angina pectoris; J44.9 Chronic obstructive pulmonary disease, unspecified; F32.9 Major depressive disorder, single episode, unspecified; H54.7 Unspecified visual loss; Z95.5 Presence of coronary angioplasty implant and graft; I25.2 Old myocardial infarction; Z79.51 Long term (current) use of inhaled steroids; Z79.899 Other long term (current) drug therapy
CPT/HCPCS: 70450; 73030; 73090; 73110; 90471; 90715; 99281; 99284; A9270

== ENCOUNTER 2020-07-16 08:00 | Outpatient (CLI) | payer MEDICARE, OTHER | END 2020-07-16 23:59 | disposition home or self-care (01) | LOC: LAB.N 08:00 | PROVIDERS: ATTEND Nurse Practitioner | DX: S50.811A Abrasion of right forearm, initial encounter (principal); L08.9 Local infection of the skin and subcutaneous tissue, unspecified | CPT/HCPCS: 87070; 87205 ==

== ENCOUNTER 2020-10-08 09:31 | Outpatient (CLI) | payer MEDICARE, OTHER | END 2020-10-08 09:32 | disposition critical access hospital (66) | LOC: EMS 09:31 | DX: R51.9 Headache, unspecified (principal); J34.89 Other specified disorders of nose and nasal sinuses | CPT/HCPCS: A0425; A0429 ==

== ENCOUNTER 2020-10-08 09:45 | Inpatient (IN) | payer MEDICARE, OTHER ==
--- NOTE | 2020-10-08 09:50 | ED Physician Documentation ---
PD HPI FOCAL NEURO - Stated complaint Stated Complaint: CODE STROKE - History obtained from History obtained from: Patient, EMS - Additional information Additional information: 85-year-old woman with reported dementia, hypertension, COPD, coronary disease, CHF presents with strokelike symptoms. Initial history is limited due to her dementia. Reportedly was in her usual state of health around 9 AM and developed left-sided deficits and could not walk. Brought in as a code stroke. Prehospital blood sugar was 93. She is not anticoagulated. Review of Systems Unable to obtain: Dementia PD PAST MEDICAL HISTORY - Past Medical History Cardiovascular: Congestive heart failure, Coronary artery disease, [place], Other Respiratory: COPD Neuro: Dementia, Other Endocrine/Autoimmune: None GI: Diverticulitis SANDER AND POLISHER: None : None HEENT: Chronic vision loss Psych: Depression Musculoskeletal: None Derm: None - Past Surgical History Past Surgical History: Yes General: Colonoscopy /SANDER AND POLISHER: section, Hysterectomy Cardiovascular: Coronary stent HEENT: Tonsil/Adenoidectomy - Present Medications Home Medications: Ambulatory Orders Medication Instructions Recorded Confirmed FLUoxetine [PROzac] 10 mg ORAL DAILY 01/27/18 10/08/20 lisinopriL [Lisinopril] 10 mg ORAL DAILY 01/27/18 10/08/20 Albuterol Sulf [Ventolin Hfa 1 - 2 puffs INH Q4HR PRN #1 inhaler 07/29/19 10/08/20 Inhaler] Aspirin Chewable [[facility] [place] 81 mg PO DAILY 10/08/20 10/08/20 Aspirin] Atorvastatin [Lipitor] 20 mg PO DAILY 10/08/20 10/08/20 Mecobalamin [B12 Active] 1 tab PO DAILY 10/08/20 10/08/20 Metoprolol Tartrate [Lopressor] 50 ng PO DAILY 10/08/20 10/08/20 - Allergies Allergies/Adverse Reactions: Allergies Allergy/AdvReac Type Severity Reaction Status Date / Time No Known Drug Allergies Allergy Verified 07/09/20 22:21 - Social History Does the pt smoke?: No Smoking Status: Never smoker Does the pt drink ETOH?: No Does the pt have substance abuse?: No - Immunizations Immunizations are current?: Yes - POLST Patient has POLST: No PD ED PE NORMAL - Vitals Vital signs reviewed: Yes - General General: No acute distress, Other (She is alert and oriented to person but not place or time or events. She has an obvious right-sided gaze preference.) - HEENT HEENT: PERRL. No: EOMI - Neck Neck: Supple, no meningeal sign, No bony TTP - Cardiac Cardiac: RRR, No murmur - Respiratory Respiratory: No respiratory distress, Clear bilaterally - Abdomen Abdomen: Normal bowel sounds, Soft, Non tender - Back Back: No CVA TTP, No spinal TTP - Derm Derm: Normal color, Warm and dry - Extremities Extremities: No edema, No calf tenderness / cord - Neuro Eye Opening: Spontaneous Motor: Obeys Commands Verbal: Confused GCS Score: 14 NIHSS - Time Time: 09:45 - Level of Consciousness Level of consciousness: (0) Alert, Keenly responsive LOC Questions: (2) Answers neither correct LOC Commands: (0) Performs both correctly - Gaze Best Gaze: (2) Forced deviation (to the right) - Visual Visual: (2) Complete Hemianopia (does not respond to threat from left) - Facial Palsy Facial Palsy: (2) Partial paralysis - Motor Arms (both separate) Motor Arm (right): (1) Drift Motor Arm (left): (2) Some effort against gravity - Motor Legs (both separate) Motor Leg (right): (1) Drift Motor Leg (left): (2) Some effort against gravity - Limb Ataxia Limb Ataxia: (0) Absent - Sensory Sensory: (1) [id number] loss - Best Language Best Language: (0) No aphasia - Dysarthria Dysarthria: (0) Normal - Extinction and Inattention (formally neg Extinction and inattention: (2) Profound anastasia-inattention or extinction to more than one modality - Total Score/Results Total Score/Result: 17 Results - Vitals Vitals: Vital Signs - 24 hr 10/08/20 10:09 Temperature 36.1 C L Heart Rate 63 Respiratory 20 Rate Blood Pressure 192/134 H O2 Saturation 92 Oxygen O2 Source Room air - EKG (time done) 1013 Rate: Rate (enter#) (59) Rhythm: NSR [place]: Normal QRS: LVH Ischemia: Non specific changes - Labs Labs: Laboratory Tests 10/08/20 10/08/20 10:13 10:13 WBC 7.5 RBC 3.99 L Hgb 13.9 Hct 42.3 MCV 106.0 H MCH 34.8 H MCHC 32.9 RDW 12.8 Plt Count 116 L MPV 9.4 Neut # (Auto) 3.3 Lymph # (Auto) 3.8 H Nuckolls # (Auto) 0.4 Eos # (Auto) 0.1 Baso # (Auto) 0.1 Absolute Nucleated RBC 0.00 Nucleated RBC % 0.0 Sodium 136 Potassium 3.8 Chloride 101 Carbon Dioxide 24 Anion Gap 11.0 BUN 17 Creatinine 0.8 Estimated GFR (MDRD) 68 L Glucose 129 H Calcium 8.8 Magnesium 2.0 Total Bilirubin 1.8 H AST 21 ALT 16 Alkaline Phosphatase 57 Total Protein 6.7 Albumin 3.7 Globulin 3.0 Albumin/Globulin Ratio 1.2 PD MEDICAL DECISION MAKING - ED course ED course: 85-year-old woman presents with a code stroke with exam that is consistent with debilitating neurologic injury. She is at baseline demented with poor quality of life per the daughter. Had a long talk with the daughter, she does not want her transferred for heroic measures and frankly does not even want me to start blood pressure medication. Patient's wishes are for comfort care. Spoke with Dr. Orourke for admission at 10:25 AM. Departure - Departure Disposition: 66 [facility] DC/Xfer Clinical Impression: Intracranial hemorrhage Condition: Serious
[2020-10-08] MEDS ORDERED: MORPHINE 2 MG/ML CARPUJECT IVP STA (10:08)
[2020-10-08 10:21] LABS: BASOPHILS # (AUTO) 0.1 10^3/uL (0.0-0.1); BASOPHILS % (AUTO) 0.7 %; EOSINOPHILS # (AUTO) 0.1 10^3/uL (0.0-0.7); EOSINOPHILS % (AUTO) 1.1 %; HCT - HEMATOCRIT 42.3 % (37.0-47.0); HGB - HEMOGLOBIN 13.9 g/dL (12.0-16.0); LYMPHOCYTES # (AUTO) 3.8 10^3/uL (1.5-3.5); MEAN CORPUSCULAR HEMOGLOBIN 34.8 pg (27.0-31.0); MEAN CORPUSCULAR HGB CONC 32.9 g/dL (32.0-36.0); MEAN PLATELET VOLUME 9.4 fL (7.9-10.8); MONOCYTES # (AUTO) 0.4 10^3/uL (0.0-1.0); MONOCYTES % (AUTO) 4.8 %; NEUTROPHILS # (AUTO) 3.3 10^3/uL (1.5-6.6); NEUTROPHILS % (AUTO) 43.1 %; PLT - PLATELET COUNT 116 10^3/uL (130-450); RED BLOOD COUNT 3.99 10^6/uL (4.20-5.40); RED CELL DISTRIBUTION WIDTH 12.8 % (12.0-15.0); WHITE BLOOD COUNT 7.5 x10^3/uL (4.8-10.8)
--- NOTE | 2020-10-08 10:26 | CT Report ---
PROCEDURE: Head W/O Stroke Protocol INDICATIONS: stroke TECHNIQUE: Noncontrast 4.5 mm thick angled axial sections acquired from the foramen magnum to the vertex, with c oronal reformats. For radiation dose reduction, the following was used: automated exposure control, adjustment of mA and/or kV according to patient size. COMPARISON: FINDINGS: Image quality: Excellent. CSF spaces: A very large right frontal hemorrhage exerts mass effect on the frontal horn and body of the right lateral ventricle. Brain: Very large right frontal parenchymal hemorrhage measuring approximately 5.2 x 4.5 x 8.6 cm wit h associated vasogenic edema and mass effect on the frontal horn and body of the right lateral ventri pam. There is bowing of the falx. There is a small amount of associated subdural hemorrhage along the falx as well as a small amount of subarachnoid hemorrhage. There is no impending uncal herniation. T he ambient cistern is patent. Skull and face: Calvarium and visualized facial bones are intact, without suspicious lesions. Sinuses: Visualized sinuses and mastoids are clear. IMPRESSION: 1. Very large right frontal hemorrhage with mass effect on the ipsilateral lateral ventricle and smal l associated subdural and subarachnoid hemorrhage. Above discussed with HEMANT RANKIN at the time of dictation on 10/08/2020 at 1004 hours. This study fulfills neurological imaging criteria for inclusion or exclusion of acute stroke therapie s based on available published neurological imaging guidelines. Reviewed by: Duc Esparza MD on 10/08/2020 10:24 AM PDT Approved by: Duc Esparza MD on 10/08/2020 10:24 AM PDT Station ID: [id number]
--- NOTE | 2020-10-08 10:32 | CT Report ---
PROCEDURE: ANGIO HEAD W/WO INDICATIONS: stroke like symptoms CONTRAST: IV CONTRAST: Optiray 320 ml: 80 PO CONTRAST: *NO PO CONTRAST TECHNIQUE: Precontrast 4.5 mm thick angled axial sections acquired from the foramen magnum to the vertex. Afte r the administration of intravenous contrast, 1 mm thick sections acquired through the [place] of [place] is. Postcontrast 4.5 mm thick sections then re-acquired from the foramen magnum to the vertex. 3-di mensional affktgq-fxjvfdiub-emfaidzicw (MIP) and/or volume rendering reformats were acquired of the c entral intracranial vasculature. For radiation dose reduction, the following was used: automated ex posure control, adjustment of mA and/or kV according to patient size. COMPARISON: CTA head 08/02/2019 FINDINGS: Image quality: Excellent. Anterior circulation: Intracranial internal carotid arteries are normal in flow. Dense atherosclerot ic calcifications noted in the intracranial segments of the internal carotid arteries bilaterally whi ch causes multifocal moderate and high-grade stenoses. The flow within the paired anterior cerebral arteries is normal and symmetric. A1 segment of the right anterior cerebral artery is congenitally hy poplastic. The flow within the middle cerebral arteries is normal and symmetric. The anterior commun icating artery is seen. 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 Posterior circulation: Visualized portions of the vertebral arteries demonstrate normal caliber, and join to form a normal appearing basilar artery. Flow within the posterior cerebral arteries is norm al and symmetric. High-grade stenoses involving the P2 segments of the posterior cerebral arteries st able compared to the prior exam. 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 Dural sinuses demonstrate normal postcontrast enhancement. CSF spaces: Ventricles are normal in size and shape. Basal cisterns are patent. No extra-axial flu id collections. Brain: There is a large 9.6 x 4.7 x 6.3 cm left frontal-parietal parenchymal bleed. There is approxim ately 7 mm of fkvdk-dj-kkes midline shift associated with the left frontal-parietal parenchymal hemat luana. Verde-white matter interface appears intact. Skull and face: Calvarium and facial bones appear intact, without suspicious lesions. Sinuses: Visualized sinuses and mastoids are clear. IMPRESSION: 1. A large acute right frontal-parietal parenchymal bleed with approximately 7 mm of hgxkr-qp-vuft salas bfalcine herniation. Right frontal-parietal parenchymal hematoma could be secondary to rupture of a r ight pericallosal cerebral aneurysm, or hypertensive bleed. 2. 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 3. Multifocal moderate and high-grade stenoses involving the intracranial segments of the internal ca rotid arteries. 4. High-grade stenoses involving the P2 segments of the posterior cerebral arteries. Reviewed by: Amber Booth MD, PhD on 10/08/2020 10:30 AM PDT Approved by: Amber Booth MD, PhD on 10/08/2020 10:30 AM PDT Station ID: [id number]
[2020-10-08 10:33] LABS: INR 1.4 (0.8-1.2); PT - PROTHROMBIN TIME 15.5 secs (9.9-12.6)
[2020-10-08 10:34] LABS: ALBUMIN 3.7 g/dL (3.2-5.5); ALBUMIN/GLOBULIN RATIO 1.2 (1.0-2.2); BILIRUBIN,TOTAL 1.8 mg/dL (0.2-1.0); CALCIUM 8.8 mg/dL (8.5-10.3); CREATININE 0.8 mg/dL (0.4-1.0); POTASSIUM 3.8 mmol/L (3.5-5.0); TOTAL PROTEIN 6.7 g/dL (6.7-8.2)
[2020-10-08] MEDS ORDERED: GLYCOPYRROLATE 1 MG/5 ML VIAL SUBQ PRN (10:36)
[2020-10-08] MEDS ORDERED: ACETAMINOPHEN 650 MG SUPP PR PRN (10:36)
[2020-10-08] MEDS ORDERED: ATROPINE 1% OPHTH DROPS 2 ML SL PRN (10:36)
[2020-10-08] MEDS ORDERED: ONDANSETRON ODT 4 MG TABLET TL PRN (10:36)
[2020-10-08] MEDS ORDERED: ACETAMINOPHEN 160 MG/5 ML SUSP UDC PO PRN (10:36)
--- NOTE | 2020-10-08 10:38 | CT Report ---
PROCEDURE: ANGIO NECK W INDICATIONS: stroke like symptoms CONTRAST: IV CONTRAST: Optiray 320 ml: 80 PO CONTRAST: *NO PO CONTRAST TECHNIQUE: After the administration of intravenous contrast, 1.5 mm axial sections acquired from the aortic arch to the [place] of [place]. Coronal 3-D maximum intensity projection (MIP) and/or volume rendering ref ormats were then performed. For radiation dose reduction, the following was used: automated exposur e control, adjustment of mA and/or kV according to patient size. COMPARISON: None. FINDINGS: Image quality: Degraded by patient motion artifact. Carotid system: The great vessels demonstrate a conventional anatomy as they arise from the aortic a rch. The origins of the common carotid arteries appear patent. Scattered atherosclerotic calcificati ons noted in the common carotid arteries bilaterally which causes multifocal moderate stenoses. The i nternal carotid arteries are poorly visualized due to patient motion artifact. There is high-grade, a t least 80% stenosis of the origin of the right internal carotid artery. Less than 50% stenosis of th e origin the left internal carotid artery. Posterior circulation: High-grade, chronic episodic stenosis of the origin of the right vertebral art lubna with diminished flow distal to the origin. There is occlusion of the distal V1 segment of the rig ht femoral artery with reconstitution of diminished flow in the V2, V3 and V4 segments via collateral vessels. Mild atherosclerotic irregularity noted in the origin the left vertebral artery. Normal cale w noted in the left vertebral artery. The more superior portions of the vertebral arteries demonstrat e normal course and caliber. They join to form a normal appearing basilar artery. Soft tissues: Visualized neck soft tissues demonstrate no suspicious abnormalities. The thyroid is normal in size and there are no incidental findings. Severe emphysematous changes noted in the lung a pices. Bones: No suspicious bony lesions. Spine degenerative disc disease and facet arthropathy are noted. Visualized cervical spine appears normally aligned. IMPRESSION: 1. High-grade, greater than 80% stenosis of the origin the right internal carotid artery. 2. Less than 50% stenosis of the origin of the left internal carotid artery. 3. Occluded proximal right vertebral artery with reconstitution diminish flow in the V2 and V3 segmen ts of the right vertebral artery via collateral vessels. 4. Mild atherosclerotic stenosis of the origin of the left vertebral artery. The estimate of stenosis included in the report of the imaging study was calculated using the NASCET method Reviewed by: Amber Booth MD, PhD on 10/08/2020 10:36 AM PDT Approved by: Amber Booth MD, PhD on 10/08/2020 10:36 AM PDT Station ID: [id number]
[2020-10-08 11:20] LABS: B. PARAPERTUSSIS- RESP PCR PAN NOT DETECTED; B. PERTUSSIS- RESP PCR PANEL NOT DETECTED; C. PNEUMONIAE- RESP PCR PANEL NOT DETECTED; CORONAVIRUS 229E-RESP PCR NOT DETECTED; CORONAVIRUS HKU1-RESP PCR NOT DETECTED; CORONAVIRUS NL63-RESP PCR NOT DETECTED; CORONAVIRUS OC43-RESP PCR NOT DETECTED; HUMAN METAPNEUMOVIRUS NOT DETECTED; INFLUENZA A- RESP PCR PANEL NOT DETECTED; INFLUENZA B - RESP PCR PANEL NOT DETECTED; M. PNEUMONIAE- RESP PCR PANEL NOT DETECTED; PARAINFLUENZA VIRUS 1 NOT DETECTED; PARAINFLUENZA VIRUS 2 NOT DETECTED; PARAINFLUENZA VIRUS 3 NOT DETECTED; PARAINFLUENZA VIRUS 4 NOT DETECTED; RHINOVIRUS/ENTEROVIRUS NOT DETECTED; RSV- RESP PCR PANEL NOT DETECTED; SARS-CoV-2 -RESP PCR PANEL NOT DETECTED
--- NOTE | 2020-10-08 12:11 | HISTORY & PHYSICAL EXAMINATION ---
Chief Complaint - Chief Complaint Chief Complaint: stroke-like symptoms History of Present Illness - Admitted From Admitted From:: home - History Obtained From History obtained from: daughter (Jeyson) Exam Limitations: patient is currently nonverbal with history of dementia - History of Present Illness HPI Comment/Other: Mrs. Mas is an 85yo female who was brought in this morning by her daughter (Jeyson) and with stroke-like symptoms. The patient has advanced dementia, but prior to admission followed commands and was able to talk and walk i ndependently. Per family report, the patient's memory and functional capacity has been declining for some time, but was markedly worse starting about two weeks ago. The patient was previously able to perform routine ADLs with gentle supervision, but began forgetting simple objects and tasks- "She no longer knew what to do with the toilet paper, or how to turn on the faucet, which was new". The family states that 3 months ago the patient suffered a fall at home and subsequently received a CT head that was normal. This morning (which happens to be the patient's birthday), the daughter reports they followed their usual routine of breakfast, after which the patient was helped by her daughter to take a shower. After the shower dtr Jeyson states that her mom was feeling more tired than usual and wanted to lay down to take a nap. Upon waking from the nap, Mrs. Mas was unable to respond verbally and demonstrated left-sided weakness and EMS was called, around 0900. Her last known normal state was ~0730 this morning. In the ED, CTA head revealed right frontal-parietal parenchymal bleed with approximately 7mm of dkqtp-na-mdzv subfalcine herniation. Family states that they would like to pursue comfort measures only. They are currently awaiting for an inpatient bed. Current plan is to provide comfort-based supportive measures. If the patient remains stable after the next day or two, will look into transitioning her to home or to a facility, depending on family preferences/ability. History - Past Medical History Cardiovascular: reports: Congestive heart failure, Coronary artery disease, [place], Other Respiratory: reports: COPD Neuro: reports: Dementia, TIA (x2 in the last year or so (per daughter)), Headaches (occipital), Other Endocrine/Autoimmune: reports: None GI: reports: Diverticulitis FLANGING MACHINE OPERATOR: reports: None : reports: None, Incontinence HEENT: reports: Chronic vision loss, Macular degeneration Psych: reports: Depression, Anxiety Musculoskeletal: reports: None Derm: reports: None MRSA Hx?: No - Past Surgical History General: reports: Colonoscopy /FLANGING MACHINE OPERATOR: reports: section, Hysterectomy Cardiovascular: reports: Coronary stent HEENT: reports: Tonsil/Adenoidectomy - Family & Social History Family History: Mother: , [place], Father: Family History Comment/Other: Unknown details of parents. to for 45yrs. Has 3 daughters and 2 sons, one of who is (liver cancer). Living arrangement: At home Living Situation: With spouse/s.o., With family (lives with . Daughter Jeyson lives nearby and provides daily care for the patient. ) - Substance History Use: Uses substance without health or social issues: Tobacco, Alcohol (Unknown pack history, quit tobacco 20yrs ago. Quit alcohol 3yrs ago.) Abuse: Recurrent use of substance despite neg consequences: NONE Tobacco Details: Cigarettes - POLST Patient has POLST: No POLST Status: DNR Meds/Allgy - Home Medications Home Medications: Ambulatory Orders Medication Instructions Recorded Confirmed FLUoxetine [PROzac] 10 mg ORAL DAILY 01/27/18 10/08/20 lisinopriL [Lisinopril] 10 mg ORAL DAILY 01/27/18 10/08/20 Albuterol Sulf [Ventolin Hfa 1 - 2 puffs INH Q4HR PRN #1 inhaler 07/29/19 10/08/20 Inhaler] Aspirin Chewable [[facility] Isai[facility] 81 mg PO DAILY 10/08/20 10/08/20 Aspirin] Atorvastatin [Lipitor] 20 mg PO DAILY 10/08/20 10/08/20 Mecobalamin [B12 Active] 1 tab PO DAILY 10/08/20 10/08/20 Metoprolol Tartrate [Lopressor] 50 ng PO DAILY 10/08/20 10/08/20 - Allergies Allergies/Adverse Reactions: Allergies Allergy/AdvReac Type Severity Reaction Status Date / Time No Known Drug Allergies Allergy Verified 07/09/20 22:21 Review of Systems - Constitutional Constitutional: reports: Poor appetite. denies: Fever, Chills, Malaise - Eyes Eyes: reports: Vision loss. denies: Pain, Irritation - Ears, Nose & Throat Ears, Nose & Throat: reports: Dentures (upper and lower). denies: Ear pain, Hearing loss, Hearing aids, Nosebleeds, Nasal congestion, Sore throat - Cardiovascular Cariovascular: reports: Edema (1+ BLE). denies: Irregular heart rate, Palpitations, Chest pain - Respiratory Respiratory: denies: Cough, Sputum production, Wheezing, SOB at rest, SOB with exertion, Apnea - Gastrointestinal Gastrointestinal: reports: Poor appetite. denies: Abdominal pain, Abdominal distention, Constipation, Diarrhea, Change in bowel habits, Nausea, Vomiting - Genitourinary Genitourinary: denies: Dysuria, Frequency, Urgency - Musculoskeletal Musculoskeletal: reports: Stiffness, Limited range of motion (Left-sided neck pain and stiffness, chronic). denies: Muscle pain, Back pain, Gout - Integumentary Integumentary: denies: Rash, Pruritis, Lumps - Neurological Neurological: reports: General weakness (new weakness L>R), Headache (chronic, occasional), Memory problems, Pre-existing deficit (pre-existing memory problems). denies: Numbness, Seizures - Psychiatric Psychiatric: reports: Anxiety. denies: Suicidal, Delusions, Hallucinations - Endocrine Endocrine: denies: Polyuria, Polydypsia, Polyphagia - Hematologic/Lymphatic Hematologic/Lymphatic: denies: Blood clots, Lymphadenopathy, Bleeding tendencies Prior Level of Functionality: Last known normal 10/08/20 at 0730. Previously able to ambulate and perform ADLs with limited assistance. Exam - Vital Signs Vital Signs: Vital Signs x48h Temp Pulse Resp BP Pulse Ox 10/08/20 11:14 36.5 C 54 L 16 184/91 H 96 10/08/20 10:44 36.7 C 50 L 19 173/79 H 96 10/08/20 10:38 87 L 10/08/20 10:09 36.1 C L 63 20 192/134 H 92 - Physical Exam General Appearance: positive: No acute distress, Alert (Alert, but nonverbal and not responding to commands) Eyes Bilateral: positive: PERRL ENT: positive: ENT inspection nml Neck: positive: Nml inspection Respiratory: positive: No respiratory distress, Breath sounds nml Cardiovascular: positive: Regular rate & rhythm, No murmur, No gallop Peripheral Pulses: positive: 2+ Abdomen: positive: No organomegaly, Nml bowel sounds, No distention Back: positive: Nml inspection Skin: positive: Color nml, No rash Extremities: positive: Non-tender, Nml appearance Neurologic/Psychiatric: positive: Other (Unable to assess, currently nonverbal) Conclusion/Plan - Problem List (1) Intracranial hemorrhage Conclusion/Plan: CTA shows acute 7mm rcwzc-yq-bgti subfalcine herniation. This is likely due to either rupture of an existing aneurysm or a hypertensive bleed. Regardless, the family has elected to pursue comfort measures. No further work-up or treatment planned at this time, unless directly impacting comfort of the patient. (2) Comfort measures only status Conclusion/Plan: Comfort orderset initiated. The patient does not have a history of significant pain issues, but does reportedly take Tylenol twice daily for generalized aches and pains and to prevent exacerbation of her chronic left neck pain. She did not have her routine dose of Tylenol today prior to the ED, and daughter Jeyson expressed that she would be happy for the patient to receive a dose of opioids in the meantime. Discussed at length with Jeyson and the patient's about what can be expected during the process, and encouraged family to let staff know if they believe the patient is uncomfortable at any point. The patient has had dementia for some time, which recently became more advanced. The family feels that moving forward with comfort measures instead of aggressive care would honor the patient's wishes. Encouraged the family to not hesitate to reach out if they have any questions or concerns during this time. - Lab Results Fish Bones: 10/08/20 10:13 10/08/20 10:13 - Diagnostic Imaging Results Diagnostic Imaging Results: positive: Final report reviewed
[2020-10-08] MEDS: ONDANSETRON 4 MG/2 ML VIAL IVP PRN ×2 (12:46→21:43)
[2020-10-08] MEDS: MORPHINE SOL 10 MG/0.5 ML ORAL SYRINGE PO PRN ×4 (14:00→21:19)
[2020-10-08] MEDS ORDERED: IOVERSOL 320 100 ML VIAL IVP ONE (16:34)
[2020-10-09] MEDS: MORPHINE SOL 10 MG/0.5 ML ORAL SYRINGE PO PRN ×8 (03:57→21:30)
[2020-10-09] MEDS: LORazepam 2 MG/ML VIAL IVP PRN ×3 (07:31→21:34)
--- NOTE | 2020-10-09 12:18 | PROVIDER PROGRESS NOTE ---
Subjective - Prog Note Date Prog Note Date: 10/09/20 Prog Note Time: 12:16 - Subjective Pt reports feeling: No change (Patient is unresponsive and on comfort care measures.) Objective - Vital Signs/Intake & Output Vital Signs: Vital Signs x48h Pulse Resp BP Pulse Ox 10/09/20 11:06 110 H 20 182/100 H 94 Intake & Output: Intake & Output 10/06/20 10/07/20 10/08/20 10/09/20 23:59 23:59 23:59 23:59 Output Total 575 400 Balance -575 -400 - Objective General Appearance: positive: No acute distress Respiratory: positive: No respiratory distress Cardiovascular: positive: Regular rate & rhythm Abdomen: positive: Nml bowel sounds, No distention Extremities: positive: Nml appearance Neurologic/Psychiatric: positive: Other (obtunded, no longer interactive or responding to stimuli) - Lab Results Fish Bones: 10/08/20 10:13 10/08/20 10:13 - Diagnostic Imaging Diagnostic Imaging Results: positive: Final report reviewed (CT reviewed) Assessment/Plan - Problem List (1) Intracranial hemorrhage Impression: CTA on admission shows acute 7mm iyckc-yy-hsku subfalcine herniation, likely due to either rupture of an existing aneurysm or a hypertensive bleed. Regardless, the family has elected to pursue comfort measures. No further work-up or treatment planned at this time, unless directly impacting comfort of the patient. (2) Comfort measures only status Conclusion/Plan: Comfort orderset initiated yesterday. The patient does not have a history of significant pain issues, but does reportedly take Tylenol twice daily for generalized aches and pains and to prevent exacerbation of her chronic left neck pain. She has been receiving opioid analgesia to promote comfort since admission yesterday. Today she is no longer responsive to outward stimuli, appears pale, and exhibits an early [place]yene-Rees respiratory pattern. Both nursing staff and I have provided gentle education to the family that these breathing changes are normal, expected, and do not signify distress.
[2020-10-09 18:02] VITALS: BP 191/91
--- NOTE | 2020-10-10 | Discharge Plan ---
Discharge Plan Problem Reviewed?: Yes Disposition: 20 No Smoking: If you smoke, Please STOP! Call for help. Follow-up with: Bubba Amato DO [Primary Care Provider] -
--- NOTE | 2020-10-10 00:02 | DISCHARGE SUMMARY ---
Discharge Summary Admit Date: 10/08/20 Discharge Date: 10/09/20 Discharging Provider: Dimitrios Fonseca Primary Care Provider: Bubba Amato Code Status: Do Not Attempt Resuscitation Discharge Disposition: 20 - DIAGNOSES Admission Diagnoses: Intracranial hemorrhage Comfort measures only status Discharge Diagnoses with Status of Each Condition: Intracranial hemorrhage Comfort measures only status Hypertension Cerebral artery aneurysm - HPI History of Present Illness: Mrs. Mas is an 85yo female who was brought in this morning by her daughter (Jeyson) and with stroke-like symptoms. The patient has advanced dementia, but prior to admission followed commands and was able to talk and walk independently. Per family report, the patient's memory and functional capacity has been declining for some time, but was markedly worse starting about two weeks ago. The patient was previously able to perform routine ADLs with gentle supervision, but began forgetting simple objects and tasks- "She no longer knew what to do with the toilet paper, or how to turn on the faucet, which was new". The family states that 3 months ago the patient suffered a fall at home and subsequently received a CT head that was normal. This morning (which happens to be the patient's birthday), the daughter reports they followed their usual routine of breakfast, after which the patient was helped by her daughter to take a shower. After the shower dtr Jeyson states that her mom was feeling more tired than usual and wanted to lay down to take a nap. Upon waking from the nap, Mrs. Mas was unable to respond verbally and demonst rated left-sided weakness and EMS was called, around 0900. Her last known normal state was ~0730 this morning. In the ED, CTA head revealed right frontal-parietal parenchymal bleed with approximately 7mm of xnafa-co-mkfy subfalcine herniation. Family states that they would like to pursue comfort measures only. They are currently awaiting for an inpatient bed. Current plan is to provide comfort-based supportive measures. If the patient remains stable after the next day or two, will look into tra nsitioning her to home or to a facility, depending on family preferences/ability. - HOSPITAL COURSE Hospital Course: She was admitted to the floor for comfort measures only given she had an intracranial hemorrhage with a midline shift. She was treated with morphine, Ativan, atropine drops as needed. Family was present throughout her hospitalization. The patient the evening of October 09 at 23:52. Daughter was present at bedside. - ALLERGIES Allergies/Adverse Reactions: Allergies Allergy/AdvReac Type Severity Reaction Status Date / Time No Known Drug Allergies Allergy Verified 07/09/20 22:21 - MEDICATIONS Home Medications: Ambulatory Orders Medication Instructions Recorded Confirmed FLUoxetine [PROzac] 10 mg ORAL DAILY 01/27/18 10/08/20 lisinopriL [Lisinopril] 10 mg ORAL DAILY 01/27/18 10/08/20 Albuterol Sulf [Ventolin Hfa 1 - 2 puffs INH Q4HR PRN #1 inhaler 07/29/19 10/08/20 Inhaler] Aspirin Chewable [[place] 81 mg PO DAILY 10/08/20 10/08/20 Aspirin] Atorvastatin [Lipitor] 20 mg PO DAILY 10/08/20 10/08/20 Mecobalamin [B12 Active] 1 tab PO DAILY 10/08/20 10/08/20 Metoprolol Tartrate [Lopressor] 50 ng PO DAILY 10/08/20 10/08/20 - PHYSICAL EXAM AT DISCHARGE Eyes Bilateral: positive: Other (Pupils fixed and dilated.) Respiratory: positive: Other (No respirations.) Cardiovascular: positive: Other (No heart sounds.) Peripheral Pulses: positive: 0 - LABS Result Diagrams: 10/08/20 10:13 10/08/20 10:13 - DIAGNOSTIC IMAGING Diagnostic Imaging Results Comments: Head CT on October 08 showed a very large right frontal hemorrhage with mass-effect on the ipsilateral lateral ventricle and small associated subdural and subarachnoid hemorrhage.
== END 2020-10-09 23:52 | disposition expired | DRG 66 ==
LOC: EDUNIT# → ED 09:45 → MS2 10:33
PROVIDERS: ADMIT Specialist; ATTEND Internal Medicine
DX: I62.9 Nontraumatic intracranial hemorrhage, unspecified (principal); I60.7 Nontraumatic subarachnoid hemorrhage from unspecified intracranial artery; I62.00 Nontraumatic subdural hemorrhage, unspecified; I11.0 Hypertensive heart disease with heart failure; I50.9 Heart failure, unspecified; I25.10 Atherosclerotic heart disease of native coronary artery without angina pectoris; R41.3 Other amnesia; J44.9 Chronic obstructive pulmonary disease, unspecified; I25.2 Old myocardial infarction; Z20.822 Contact with and (suspected) exposure to COVID-19; F03.90 Unspecified dementia, unspecified severity, without behavioral disturbance, psychotic disturbance, mood disturbance, and anxiety; Z87.891 Personal history of nicotine dependence; Z66 Do not resuscitate; R53.1 Weakness; Z95.5 Presence of coronary angioplasty implant and graft; H53.47 Heteronymous bilateral field defects; G51.0 Bell's palsy; Z51.5 Encounter for palliative care; R26.2 Difficulty in walking, not elsewhere classified; Z91.81 History of falling; R29.898 Other symptoms and signs involving the musculoskeletal system; Z86.73 Personal history of transient ischemic attack (TIA), and cerebral infarction without residual deficits
CPT/HCPCS: 36415; 70450; 70496; 70498; 80053; 83735; 85025; 85610; 87631; 93005; 96374; 99285; A9270; J2060; Q9967; 0202U